=== PATIENT | male | born 1975 | race Caucasian/White ===

== ENCOUNTER 2021-09-25 08:26 | Outpatient (REF) | payer OTHER, SELFPAY ==
[2021-09-25 11:14] LABS: Appearance Urine CLEAR; Color Urine YELLOW; Glucose Urine UA >=1000 MG/DL (NEG); Leukocyte Esterase Urine NEG (NEG); Nitrite Urine NEG (NEG); Specific Gravity - Urine 1.025 (1.005-1.025); Urine Blood NEG (NEG); Urine Ketones NEG (NEG); Urine Protein NEG (NEG-TRACE)
[2021-09-25 11:18] LABS: Hemoglobin 16.7 g/dl (14.0-18.0); Mean Corpuscular HGB Conc 33.4 g/dl (31.0-36.0); Mean Corpuscular Hemoglobin 28.8 pg (27.0-33.0); Mean Corpuscular Volume 86.4 fL (80.0-98.0); Mean Platelet Volume 11.6 fL (9.4-12.4); Platelet Count 304 X10*3/uL (160-400); Red Blood Count 5.79 X10*6/uL (4.60-5.80); Red Cell Distribution Width 11.9 % (11.0-16.0); White Blood Count 10.5 X10*3/uL (4.8-10.8)
[2021-09-25 11:23] LABS: Estimated Average Glucose 278 mg/dL; Hemoglobin A1c % 11.3 %
[2021-09-25 11:34] LABS: RBC Urine 0-2 /HPF (0); Squamous Epithelial Cell Urine TRACE /LPF; WBC Urine 0 /HPF (0-4)
[2021-09-25 11:39] LABS: Alanine Aminotransferase 42 U/L (0-40); Albumin Level 4.4 g/dL (3.5-5.0); Alkaline Phosphatase 65 U/L (39-117); Anion Gap 13 (12-20); Aspartate Amino Transferase 21 U/L (5-37); Bilirubin Total 0.4 mg/dL (0.0-1.0); Blood Urea Nitrogen 19 mg/dL (9-16); Calcium 9.3 mg/dL (8.4-10.2); Carbon Dioxide 26 mmol/L (22-29); Chloride 101 mmol/L (96-108); Cholesterol 229 mg/dL; Estimated Glomerular Filt Rate > 60; Glucose Fasting 273 mg/dL (60-99); HDL Cholesterol 37 mg/dL; LDL Cholesterol Calculated 132 mg/dl; Potassium 4.2 mmol/L (3.3-5.1); Sodium 136 mmol/L (135-145); Total Protein 7.6 g/dL (6.5-8.0); Triglycerides 301 mg/dL
[2021-09-25 11:44] LABS: Creatinine Urine 113.89 mg/dL; Microalbum/Creatinine Ratio Ur 45.6 ug/mg cr
== END 2021-09-25 08:27 | disposition home or self-care (01) ==
LOC: HO.HMGCLDS 08:26
PROVIDERS: PCP Internal Medicine; Visit Provider Internal Medicine
DX: E11.9 Type 2 diabetes mellitus without complications (principal); I10 Essential (primary) hypertension
CPT/HCPCS: 36415; 80053; 80061; 81001; 82043; 83036; 85027

== ENCOUNTER → 2022-01-04 14:52 | Outpatient (BNVA) | payer OTHER, SELFPAY | PROVIDERS: PCP Internal Medicine; Referring Provider Internal Medicine; Visit Provider Internal Medicine | DX: I48.0 Paroxysmal atrial fibrillation (principal); R93.1 Abnormal findings on diagnostic imaging of heart and coronary circulation; E11.9 Type 2 diabetes mellitus without complications; I10 Essential (primary) hypertension; Z79.01 Long term (current) use of anticoagulants; Z79.899 Other long term (current) drug therapy | CPT/HCPCS: 93005 ==

== ENCOUNTER → 2022-02-16 14:38 | Outpatient (REF) | payer OTHER, SELFPAY ==
--- NOTE | 2022-02-16 14:43 | CA_ITS ---
Transthoracic Echocardiogram Patient (Last, First, Middle): Jerod Jain, Gender: Male Date of : 1975 Age: 46 Procedure Date: 02/16/2022 Procedure Type: Transthoracic Echocardiogram Location: OP Height: 182.88 cm Weight: 104.33 kg BSA: 2.26 m2 Heart Rate: bpm BP: 140 / 100 mmHg Asset Protection Detective: ELSA Referring MD: Amanda Kline MD Yard Supervisor Cotton Gin: Matt Barraza MD Symptoms: I48.91 - Unspecified atrial fibrillation Study Quality: Good ECG Rhythm: Sinus Conclusions: - 1. Low normal LV systolic function with grade 1 diastolic dysfunction 2. Mildly dilated ascending aorta with possible bicuspid aortic valve 3. Normal cardiac valvular Doppler 4. Normal RV systolic pressure 5. No pericardial effusion Findings Left Ventricle Normal left ventricular cavity size. There is mildly increased left ventricular wall thickness. The left ventricular systolic function is low normal. The visually estimated ejection fraction is between 50-55%. Spectral Doppler is indicative of an impaired relaxation filling pattern. E/E prime ratio is <8, consistent with normal filling pressures. Evidence suggests grade I (mild) diastolic dysfunction. Measured peak global longitudinal endocardial strain is -15.6% which is reduced Right Ventricle Normal right ventricular cavity size and systolic function. Atria The left atrium is likely dilated. There is lipomatous hypertrophy of the interatrial septum. There is no evidence of interatrial shunt. The right atrium is normal in size. Aortic Valve There is no aortic valve stenosis. There is no aortic valve regurgitation. The valve leaflets are not very well visualized but appear to be bicuspid with fused right and left leaflets. Mitral Valve Normal mitral valve structure and function. There is trace mitral valve regurgitation. There is no mitral valve stenosis. Pulmonic Valve The pulmonic valve is likely normal. There is trace pulmonic valve regurgitation. Tricuspid Valve Normal tricuspid valve structure. There is trace tricuspid valve regurgitation. The right ventricular systolic pressure is normal. The right ventricular systolic pressure is 21 mmHg. Normal right atrial pressure. There is no evidence of pulmonary hypertension. Great Vessels The pulmonary artery was not well visualized. There is mild dilatation of the ascending aorta measuring 4.00 cm. Venous The inferior vena cava is normal in size and collapses greater than 50% with inspiration. Pericardium/Pleural There is no evidence of pericardial effusion. Prior Study Comparison No prior study available for comparison. Measurements 2D Linear Measurements IVSd: 1.18 0.6-0.9/0.6-1.0 cm LVIDd: 4.42 3.9-5.3/4.2-5.9 cm LVIDd Index: 1.96 2.4-3.2/2.2-3.1 cm/m2 LVIDs: 2.51 2.0-3.6 cm LVPWd: 1.19 0.7-1.1 cm LA Diam: 4.20 2.7-3.8/3.0-4.0 cm LAIDs Index: 1.86 1.5-2.3 cm/m2 LV Mass: 235.76 67-162/88-224 g LV Mass Index: 104.32 43-95/49-115 g/m2 LVOT Diam: 2.50 3.0+(-)1.3 cm 2D Systolic Function EF 4C: 55.50 >55% EF 2C: 55.00 >55% EF BiP: 54.30 >55% Mitral Valve MV Pk E: 0.61 MV PK A: 0.66 MV Decel Time: 158.00 E/A: 0.90 E'Lateral: 5.98 E'Medial: 5.98 E/E' Med: 10.20 E/E' Lat: 10.20 PHT: 46.00 MVA PHT: 4.78 Decel Roosevelt: 3.86 Aortic Valve AoV Pk David: 1.28 AoV Mn David: 1.09 AoV VTI: 0.28 AoV Pk Grad: 7.00 Aov Mn Grad: 5.00 JENNIFER Cont.VTI: 3.33 LVOT LVOT Pk David: 0.98 LVOT Mn David: 0.67 LVOT VTI: 0.19 LVOT Pk Grad: 4.00 LVOT Mn Grad: 2.00 LVOT Diam: 2.50 LVOT Area: 4.91 Diastolic Function MV Pk E: 0.61 MV Pk A: 0.66 E/A: 0.90 E'Medial: 5.98 E/E' Med: 10.20 E' Laterial: 5.98 E/E' Lat: 10.20 Right Ventricle TAPSE (mm): 25.30 TVS' David: 15.00 Tricuspid Valve TR Pk David: 1.83 TR Pk Grad: 13.00 RA Press: 8.00 RVSP: 21.00 Great Vessels Aorta Sinus of Valsalva: 3.60 2.0-3.[address] [place]: 3.22 1.7-3.4 cm Ao Asc: 4.00 2.1-3.4 cm Ao Arch: 3.40 Updated in Other Vendor System with Status of Final aMtt Barraza MD electronically signed on 02/17/2022 12:21:22 PM with status of Final
== END ==
LOC: HO.CARD 14:38
PROVIDERS: PCP Internal Medicine; Visit Provider Internal Medicine
DX: I48.91 Unspecified atrial fibrillation (principal)
CPT/HCPCS: 93306; Q9957

== ENCOUNTER 2023-07-05 11:06 | Outpatient (AMB) | payer OTHER, SELFPAY ==
--- NOTE | 2023-07-05 11:30 | MHC.PC.OV ---
Vital Signs 07/05/23 11:31 Height 6 ft Weight 258 lb BMI 35.0 BP 142/94 H Blood Pressure Location Lt brachial Position Sitting Pulse 81 Pulse Source Pulse Oximeter Pulse Oximetry (%) 97 Oxygen Delivery Method Room Air Intake Visit Reasons: PE - due for colonoscopy Intake Note: Pt is here today for PE. Allergies No Known Allergies Allergy (Verified 07/05/23 11:37) Medication List - Last Reconciled 07/05/23 by Amanda Kline MD atorvastatin 10 mg PO BEDTIME cyanocobalamin (vitamin B-12) 1,000 mcg IM QWEEK diltiazem HCl 240 mg PO DAILY empagliflozin (Jardiance) 10 mg PO DAILY glipizide 10 mg PO BID insulin glargine (Lantus Solostar U-100 Insulin) 60 units (0.6 mL) subcut DAILY insulin lispro (Humalog KwikPen (U-100) Insulin) 10 units (0.1 mL) subcut BID metformin 1,000 mg PO BID metoprolol succinate ER 50 mg PO DAILY olmesartan 20 mg PO DAILY pantoprazole 40 mg PO DAILY pen needle, diabetic (BD Ultra-Fine Mini Pen Needle) As directed vardenafil 20 mg PO DAILY Tobacco use date assessed: 07/05/23 Dental Screening Dental Screen Date: 07/05/23 Did you have a dental visit in the last 12 months?: Yes Did you have a dental problem in the last 6 months where you did not have access to dental care?: No Was dental information given to patient?: Patient has dentist HPI PE - due for colonoscopy HPI Details Pt presents for PE. Pt started Jardiance 2 months ago and reports improved fasting blood glucose down to 140. Patient does not use Adalgisa sensor because of increased sweating during the summertime. He has not been taking atorvastatin because ran out of the prescription. Patient has not seen a student life advisor for at least 6 months because they moved to different location. [facility] Medical History COVID-19 DM type 2 (diabetes mellitus, type 2) HTN (hypertension) Hyperlipidemia Kidney lump Family History Father No problems noted. Mother Hypertension Social History Household Members Other:: , 3 sons, came from [place] 6 yrs ago Housing: House Patient Tobacco Use Status: Former Tobacco user Quit Date: 3 years ago e-Cigarette/Vaping Use: Never Used Current occupational status: employed Cognitive needs: No Hearing needs: No Vision needs: Yes Questionnaire PHQ-9 Over the last 2 weeks, how often have you been bothered by any of the following problems? 1. Little interest or pleasure in doing things: not at all 2. Feeling down, depressed, or hopeless: not at all 3. Trouble falling or staying asleep, or sleeping too much: not at all 4. Feeling tired or having little energy: not at all 5. Poor appetite or overeating: not at all 6. Feeling bad about yourself - or that you are a failure or have let yourself or your family down: not at all 7. Trouble concentrating on things, such as reading the newspaper or watching television: not at all 8. Moving or speaking so slowly that other people could have noticed. Or the opposite - being so fidgety or restless that you have been moving around a lot more than usual: not at all 9. Thoughts that you would be better off or of hurting yourself in some way: not at all Total score: 0 Depression Screening Interpretation: Negative Source: Developed by Drs. Yuriy Ayala, Juanita Gutierrez, Rayray Barnett and colleagues, with an educational zora from [employer]. Thrive Questionnaire Date Thrive assessed: 07/05/23 I am a: Patient What is your living situation today?: I have a steady place to live Within the past 12 months, did the food you bought not last and you didn't have the money to get more?: Never true Within the past 12 months, did you worry whether your food would run out before you got money to buy more?: Never true Do you have trouble paying for medicines?: No Do you have trouble getting transportation to medical appointments?: No Do you have trouble paying your heating and electricity bill?: No Do you have trouble taking care of your child, family member or friend?: No Do you have trouble with day-to-day activities such as bathing, preparing meals, shopping, managing finances, etc.?: No Are you currently unemployed and looking for a job?: No Are you interested in more education?: No Please select the resources that you would like help with: None Currently or been in a relationship where the following occur: no concerns reported AUDIT C Alcohol Use Questionnaire (AUDIT-C) 1. How often do you have a drink containing alcohol?: Monthly or less 2. How many drinks containing alcohol do you have on a typical day when you are drinking?: 1 or 2 3. How often do you have six or more drinks on one occasion?: Never Total Score: 1 LAINE-7 AMB Questionnaire LAINE-7 Date LAINE - 7 assessed: 07/05/23 Feeling nervous, anxious, or on edge: 0 = Not at all Not being able to stop or control worryin = Not at all Worrying too much about different things: 0 = Not at all Trouble relaxin = Not at all Being so restless that it is hard to sit still: 0 = Not at all Becoming easily annoyed or irritable: 0 = Not at all Feeling afraid as if something awful might happen: 0 = Not at all Total LAINE-7 score (0-4 normal; 5-9 mild; 10-14 moderate; 15-21 severe): 0 Source: Developed by Drs. Yuriy Ayala, Juanita Gutierrez, Rayray Barnett and colleagues, with an educational zora from [employer]. Review of Systems Const All systems reviewed & are unremarkable except as noted in HPI and below Reports no additional complaints Eyes Reports no additional complaints ENT Reports no additional complaints Card Reports no additional complaints Resp Reports no additional complaints GI Reports no additional complaints Reports no additional complaints Physical exam (Primary Care) Vital Signs: Last Vital Signs Pulse 81 07/05/23 11:31 BP 142/94 H 07/05/23 11:31 Pulse Ox 97 07/05/23 11:31 Oxygen Delivery Method Room Air 07/05/23 11:31 BMI result Body Mass Index 35.0 Tobacco/Smoking Status: Tobacco use Status Tobacco use date assessed 07/05/23 07/05/23 11:43 Patient Tobacco Use Status Former Tobacco user 07/05/23 11:30 e-Cigarette/Vaping Use Never Used 07/05/23 11:30 PHQ-9: PHQ-9 Score PHQ-9: Total score 0 07/05/23 12:28 Depression Screening Interpretation: Negative Thrive Assessment: Date of Thrive Assessment Date Thrive assessed 07/05/23 07/05/23 11:44 Currently or been in a relationship where the following occur: no concerns reported Const General: no acute distress HENMT Head: Yes normal to inspection Face and sinus: Yes normal facial exam Throat: Yes posterior oropharynx normal Neck Neck: Yes no lymphadenopathy and Yes supple Resp Effort & Inspection: normal respiratory effort Auscultation: clear to auscultation bilaterally Cardio Rhythm: regular rhythm Heart sounds: S1 normal heart sound present and S2 normal heart sound present GI Inspection: Yes normal to inspection Palpation (GI): Soft to palpation Percussion: Yes normal to percussion Auscultation: normal bowel sounds Extrem Other: Diabetic foot exam skin is intact , absent sensation to monofilament in both feet General: Yes no clubbing, cyanosis or edema Results AMB Hemoglobin A1c AMB Hemoglobin A1c 7.9 % Last Edit by HANNAH Aquino on 07/05/23 12:29 Results Reviewed Results Reviewed: Laboratory Last Values Hgb A1c (Clinic) 7.9 % (4.0-6.0) H 07/05/23 12:22 Assessment and Plan Assessment & Plan (1) Colon cancer screening: Code(s): Z12.11 - Encounter for screening for malignant neoplasm of colon Plan: Referred to GI for colonoscopy (2) HTN (hypertension): Comment: x 20 years Code(s): I10 - Essential (primary) hypertension Plan: Increase olmesartan to 40 mg a day and continue Cardizem. Patient will return in 1 week for basic metabolic panel (3) Type 2 diabetes mellitus with unspecified complications: Comment: Diabetic neuropathy and retinopathy Code(s): E11.8 - Type 2 diabetes mellitus with unspecified complications Plan: A1c is 7.1 today. Patient was advised to increase Jardiance to 25 mg continue metformin and insulin. He was advised to decrease glipizide to half a tablet twice a day if fasting glucose is persistently less than 100. Patient will follow-up in 6 weeks for blood pressure check and fasting blood work before next visit (4) Annual physical exam: Code(s): Z00.00 - Encounter for general adult medical examination without abnormal findings Plan: Well-balanced diet regular exercise discussed with the patient (5) Hyperlipidemia: Code(s): E78.5 - Hyperlipidemia, unspecified Plan: Restart atorvastatin and check lipid profile before next visit (6) Pernicious anemia: Code(s): D51.0 - Vitamin B12 deficiency anemia due to intrinsic factor deficiency Orders: Orders Basic Metabolic Panel 1 Week E11.9 - Type 2 diabetes mellitus without complications, E78.5 - Hyperlipidemia, unspecified, I10 - Essential (primary) hypertension Comprehensive [place]. Panel Fast 6 Weeks E11.9 - Type 2 diabetes mellitus without complications, E78.5 - Hyperlipidemia, unspecified, I10 - Essential (primary) hypertension Lipid Panel 6 Weeks E11.9 - Type 2 diabetes mellitus without complications, E78.5 - Hyperlipidemia, unspecified, I10 - Essential (primary) hypertension Microalbumin, Random (w Creat) 6 Weeks E11.9 - Type 2 diabetes mellitus without complications, E78.5 - Hyperlipidemia, unspecified, I10 - Essential (primary) hypertension Complete Blood Count Auto Diff 6 Weeks E11.9 - Type 2 diabetes mellitus without complications, E78.5 - Hyperlipidemia, unspecified, I10 - Essential (primary) hypertension AMB Hemoglobin A1c Today Z13.9 - Encounter for screening, unspecified Vitamin B12 and Folate 6 Weeks D51.0 - Vitamin B12 deficiency anemia due to intrinsic factor deficiency Referrals Gastroenterology Referral Z12.11 - Encounter for screening for malignant neoplasm of colon Medications: New olmesartan 40 mg PO DAILY 90 tabs 0RF atorvastatin 10 mg PO BEDTIME 90 tabs 3RF empagliflozin (Jardiance) 25 mg PO DAILY 90 tabs 3RF Changed From insulin glargine (Lantus Solostar U-100 Insulin) 100 units subcut DAILY 30 mL 0RF To insulin glargine (Lantus Solostar U-100 Insulin) 60 units (0.6 mL) subcut DAILY 30 mL 0RF From insulin lispro (Humalog KwikPen (U-100) Insulin) 10 units (0.1 mL) subcut BID 15 mL 4RF To insulin lispro (Humalog KwikPen (U-100) Insulin) 20 units (0.2 mL) subcut BID 30 mL 4RF Refilled insulin glargine (Lantus Solostar U-100 Insulin) 60 units (0.6 mL) subcut DAILY 45 mL 3RF Discontinued olmesartan Discontinued Reason: Doctor's Order 20 mg PO DAILY 90 tabs 3RF Coding Level of Care Code Est Pt Prev Care 40-64y(14325) Diagnoses Colon cancer screening Z12.11 HTN (hypertension) I10 Type 2 diabetes mellitus with unspecified complications E11.8 Annual physical exam Z00.00 Hyperlipidemia E78.5 Pernicious anemia D51.0
[2023-07-05 11:31] VITALS: BP 142/94; PULSE 81; O2SAT 97; BMI 35.0
== END 2023-07-05 12:49 | disposition home or self-care (01) ==
PROVIDERS: PCP Internal Medicine; Visit Provider Internal Medicine
DX: Z00.00 Encounter for general adult medical examination without abnormal findings (principal); I10 Essential (primary) hypertension; E11.8 Type 2 diabetes mellitus with unspecified complications; Z12.11 Encounter for screening for malignant neoplasm of colon; E78.5 Hyperlipidemia, unspecified; D51.0 Vitamin B12 deficiency anemia due to intrinsic factor deficiency
CPT/HCPCS: 83036; 99396

== ENCOUNTER 2023-12-11 07:54 | Outpatient (REF) | payer OTHER, SELFPAY | END 2023-12-11 07:55 | disposition home or self-care (01) | LOC: HO.LNP 07:54 | PROVIDERS: PCP Internal Medicine; Visit Provider Physician Assistant | DX: A04.8 Other specified bacterial intestinal infections (principal) | CPT/HCPCS: 87338 ==

== ENCOUNTER 2023-12-11 07:54 | Outpatient (AMB) | payer OTHER, SELFPAY ==
--- NOTE | 2023-12-11 08:00 | MHC.OFFVIS ---
Intake Vital Signs 12/11/23 08:01 Height 6 ft Weight 262 lb 5.601 oz BMI 35.6 BP 161/104 H Blood Pressure Location Lt brachial Position Sitting Pulse 91 Intake Visit Reasons: Colonoscopy Screening Intake Note: Jerod presents in the office as a colonoscopy screening. CC: He is not having any concerns -- he has never had a colonoscopy and no colon cancer in the family. His son is interpreting for him today. Inbound Sales Consultant Required: Yes Inbound Sales Consultant Name: Son Allergies No Known Allergies Allergy (Verified 12/11/23 08:06) Medication List - Last Reconciled 12/11/23 by Martita Waterman PA-C albuterol sulfate 90 mcg/actuation 1 puff inhalation Q4-6H PRN atorvastatin 10 mg PO BEDTIME cyanocobalamin (vitamin B-12) 1,000 mcg IM QWEEK diltiazem HCl 240 mg PO DAILY empagliflozin (Jardiance) 25 mg PO DAILY glipizide 10 mg PO BID hydrochlorothiazide 25 mg PO QDAY insulin glargine (Lantus Solostar U-100 Insulin) 60 units (0.6 mL) subcut DAILY insulin lispro (Humalog KwikPen (U-100) Insulin) 20 units (0.2 mL) subcut BID lidocaine 5% patches topical lisinopril 10 mg PO DAILY metformin 1,000 mg PO BID metoprolol succinate ER 50 mg PO DAILY olmesartan 40 mg PO DAILY pen needle, diabetic (BD Ultra-Fine Mini Pen Needle) As directed vardenafil 20 mg PO DAILY HPI HPI Comments History of Present Illness Details A 48 y/o diabetic male referred for index screening colonoscopy presents with heartburn- for a few years- happens with clear water- a few times a week-has become annoying he has not taking any medication Bowels are fine-he has never had a colonoscopy Appetite good-unable to identify any culprits to cause heartburn since Recent DVT left leg-currently taking Eliquis No N/V/D/ abdominal pain- fever or chills His adult son is present and interprets for him [facility] Medical History Hyperlipidemia COVID-19 DM type 2 (diabetes mellitus, type 2) HTN (hypertension) Kidney lump Surgical History History of gastric surgery Family History Father No problems noted. Mother Hypertension Social History Household Members Other:: , 3 sons, came from [place] 6 yrs ago Housing: House Patient Tobacco Use Status: Former Tobacco user Quit Date: 3 years ago e-Cigarette/Vaping Use: Never Used Current occupational status: employed Cognitive needs: No Hearing needs: No Vision needs: Yes Review of Systems Const All systems reviewed & are unremarkable except as noted in HPI and below Card Denies chest pain and Denies dyspnea Resp Denies dyspnea GI Denies abdominal pain, Reports heartburn, Denies nausea and Denies vomiting Physical Exam Vital Signs: Last Vital Signs Pulse 91 12/11/23 08:01 BP 161/104 H 12/11/23 08:01 BMI result Body Mass Index 35.6 HTN- has not taken meds today- no sx Const General: cooperative, healthy appearing and comfortable Orientation/consciousness: patient oriented x3 Limitations: language barrier Eyes Sclerae: sclerae normal Resp Effort & Inspection: normal respiratory effort and able to speak in complete sentences Auscultation: clear to auscultation bilaterally, no rales and no rhonchi Cardio Rate: regular rate Rhythm: regular rhythm Heart sounds: S1 normal heart sound present and S2 normal heart sound present GI Palpation (GI): Soft to palpation and nontender Auscultation: normal bowel sounds Skin General skin exam: no rashes or lesions noted Neuro General: patient oriented x3 Psych Appearance: grossly normal and well kempt Mental Status: mental status grossly normal Speech and movement: Clear speech present Affect: normal affect Attitude: cooperative Thought process: Normal thought process present Thought content: Normal thought content present Assessment & Plan Assessment & Plan (1) Colon cancer screening: Comment: Normal bowel, no issues has f/u - eliquis Code(s): Z12.11 - Encounter for screening for malignant neoplasm of colon Plan: hold off - see back (2) Anticoagulant long-term use: Comment: eliquis for the past 3 months- DVT left leg- Code(s): Z79.01 - 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 Panel Today R12 - Heartburn, Z12.11 - Encounter for screening for malignant neoplasm of colon, Z79.01 - tank terminal gauger (current) use of anticoagulants H pylori Ag Stool Today A04.8 - Other specified bacterial intestinal infections Medications: New pantoprazole 20 mg PO QAM 30 tabs 6RF Patient Instructions: Await input -anticoagulation HP- if will pos tx He will begin pantoprazole 20 mg after submitting stool sample Labs- update- baseline RTC- 8 weeks Discuss EGD/ colon-plan of care dependent on above Coding Level of Care Code New Pt Level 4 (94182) Diagnoses Colon cancer screening Z12.11 Anticoagulant long-term use Z79.01 Heartburn R12 Time Spent (min) 35 Comment Inbound Sales Consultant
[2023-12-11 08:01] VITALS: BP 161/104; PULSE 91; BMI 35.6
== END 2023-12-11 08:51 | disposition home or self-care (01) ==
PROVIDERS: PCP Internal Medicine; Visit Provider Physician Assistant
DX: Z12.11 Encounter for screening for malignant neoplasm of colon (principal); Z79.01 Long term (current) use of anticoagulants; R12 Heartburn; Z01.818 Encounter for other preprocedural examination
CPT/HCPCS: 99204

== ENCOUNTER 2024-02-03 10:23 | Outpatient (REF) | payer OTHER, SELFPAY ==
[2024-02-03 10:36] LABS: MANUAL DIFF FLAG NO
[2024-02-03 10:46] LABS: Basophils Percent Auto 0.4 % (0-2); Eosinophils Absolute Auto 0.4 X10*3/uL (0.0-0.4); Eosinophils Percent Auto 3.7 % (0-4); Hematocrit 51.9 % (42.0-52.0); Hemoglobin 16.9 g/dl (14.0-18.0); Imm Gran Abs Auto 0.03 X10*3/uL (0.00-0.03); Imm Gran Pct Auto 0.3 % (0.0-0.4); Lymphocytes Absolute Auto 3.9 X10*3/uL (1.2-4.9); Mean Corpuscular HGB Conc 32.6 g/dl (31.0-36.0); Mean Corpuscular Hemoglobin 28.6 pg (27.0-33.0); Mean Corpuscular Volume 87.8 fL (80.0-98.0); Mean Platelet Volume 10.7 fL (9.4-12.4); Monocytes Absolute Auto 0.7 X10*3/uL (0.1-1.2); Monocytes Percent Auto 6.6 % (2-11); Neutrophils Absolute Auto 5.5 x10*3/uL (2.0-8.3); Platelet Count 283 X10*3/uL (160-400); Red Blood Count 5.91 X10*6/uL (4.60-5.80); Red Cell Distribution Width 12.3 % (11.0-16.0); White Blood Count 10.5 X10*3/uL (4.8-10.8)
[2024-02-03 11:25] LABS: Alanine Aminotransferase 78 U/L (0-40); Albumin Level 4.5 g/dL (3.5-5.0); Alkaline Phosphatase 53 U/L (39-117); Anion Gap 14 (12-20); Aspartate Amino Transferase 34 U/L (5-37); Bilirubin Total 0.5 mg/dL (0.0-1.0); Blood Urea Nitrogen 14 mg/dL (9-16); Calcium 9.7 mg/dL (8.4-10.2); Carbon Dioxide 29 mmol/L (22-29); Chloride 104 mmol/L (96-108); Cholesterol 210 mg/dL (<200); Estimated Glomerular Filt Rate > 60; Glucose Fasting 106 mg/dL (60-99); Glucose Random 106 mg/dL (60-115); HDL Cholesterol 33 mg/dL (>40); LDL Cholesterol Calculated 133 mg/dL (<100); Potassium 4.2 mmol/L (3.3-5.1); Sodium 143 mmol/L (135-145); Total Protein 7.6 g/dL (6.5-8.0); Triglycerides 222 mg/dL (<150)
[2024-02-03 11:55] LABS: Folate 11.7 ng/mL (> or = 4.0); Vitamin B12 1115 pg/mL (200-900)
[2024-02-03 12:19] LABS: Creatinine Urine 89.47 mg/dL; Microalbum/Creatinine Ratio Ur 59.2 ug/mg cr (<30)
== END 2024-02-03 10:24 | disposition home or self-care (01) ==
LOC: HO.LAB 10:23
PROVIDERS: PCP Internal Medicine; Visit Provider Physician Assistant
DX: E78.5 Hyperlipidemia, unspecified (principal); E11.9 Type 2 diabetes mellitus without complications; I10 Essential (primary) hypertension; D51.0 Vitamin B12 deficiency anemia due to intrinsic factor deficiency; R12 Heartburn; Z79.01 Long term (current) use of anticoagulants
CPT/HCPCS: 36415; 80053; 80061; 82043; 82570; 82607; 82746; 85025

== ENCOUNTER 2024-02-05 08:29 | Outpatient (AMB) | payer OTHER, SELFPAY ==
--- NOTE | 2024-02-05 08:39 | MHC.OFFVIS ---
Intake Vital Signs 02/05/24 08:40 Height 6 ft Weight 260 lb BMI 35.3 BP 171/91 H Blood Pressure Location Lt brachial Position Sitting Pulse 85 Intake Visit Reasons: 8 weeks follow up Intake Note: Patient follow up for stool results Patient denies any GI issues. Reading Aide Required: Yes Reading Aide Name: son Accompanied by: Son Allergies No Known Allergies Allergy (Verified 02/05/24 08:38) HPI HPI Comments History of Present Illness Details A 48 y/o DM male hx DVT- eliquis- follows up after seeing pcp Patient is accompanied by his adult son who interprets for-he tells me that he has seen his PCP they discussed colonoscopy with him and he agreed that it would be okay for him to stop Eliquis up to 1 week for procedures His bowels are normal- no loose stool Appetite good-pantoprazole daily for heartburn-occasional breakthrough symptoms No cardiac or respiratory c/o No N/V/D, abdominal pain, fever or chills He has no hematemesis, or hematochezia PCP- [facility] [address] [facility]. [phone] [facility] Medical History (Updated 02/05/24 @ 10:22 by Martita Waterman PA-C) Hyperlipidemia COVID-19 DM type 2 (diabetes mellitus, type 2) HTN (hypertension) Kidney lump Surgical History History of gastric surgery Family History Father No problems noted. Mother Hypertension Social History Household Members Other:: , 3 sons, came from [place] 6 yrs ago Housing: House Patient Tobacco Use Status: Former Tobacco user Quit Date: 3 years ago e-Cigarette/Vaping Use: Never Used Current occupational status: employed Cognitive needs: No Hearing needs: No Vision needs: Yes Review of Systems Const All systems reviewed & are unremarkable except as noted in HPI and below Card Denies chest pain and Denies dyspnea Resp Denies dyspnea GI Denies abdominal pain, Denies hematochezia, Reports heartburn, Denies nausea and Denies vomiting Physical Exam Vital Signs: Last Vital Signs Pulse 85 02/05/24 08:40 BP 171/91 H 02/05/24 08:40 BMI result Body Mass Index 35.3 Const General: cooperative, healthy appearing and comfortable Nutritional Appearance: overweight Orientation/consciousness: patient oriented x3 Limitations: language barrier Eyes Sclerae: sclerae normal Resp Effort & Inspection: normal respiratory effort and able to speak in complete sentences Auscultation: no rhonchi, no wheezes and diminished lung sounds Cardio Rate: regular rate Rhythm: regular rhythm Heart sounds: S1 normal heart sound present and S2 normal heart sound present GI Inspection: Yes obesity Palpation (GI): not soft and nontender Auscultation: normal bowel sounds Skin General skin exam: no rashes or lesions noted Neuro General: patient oriented x3 Extrem General: Yes full ROM Psych Appearance: grossly normal Mental Status: mental status grossly normal Speech and movement: Normal speech and movement present Affect: normal affect Attitude: cooperative Thought process: Normal thought process present Thought content: Normal thought content present Assessment & Plan Assessment & Plan (1) Colon cancer screening: Comment: Normal bowel, no issues has f/u with PCP discuss- eliquis-okay to stop for procedure Discuss diabetes medication Scheduled for EGD and colonoscopy, discussed procedures as well as rare risks need for escorted and prep Code(s): Z12.11 - Encounter for screening for malignant neoplasm of colon Plan: Discontinue Eliquis 2 days Jardiance 3 days Half dose insulin evening before, omit Met Hoffman in glipizide No diabetes medications morning of procedure (2) Heartburn: Comment: Continue PPI Code(s): R12 - Heartburn Plan: EGD Plan EGD/ colon Eliquis- d/c 2 days if appropriate Jardiance - 3 days-d/c 1/2 /dose insulin ayden before- omit metformin and glip NO DM meds morning of procedures [facility] [address] [facility]. 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
[2024-02-05 08:40] VITALS: BP 171/91; PULSE 85; BMI 35.3
== END 2024-02-05 09:10 | disposition home or self-care (01) ==
PROVIDERS: PCP Internal Medicine; Visit Provider Physician Assistant
DX: Z12.11 Encounter for screening for malignant neoplasm of colon (principal); R12 Heartburn; Z01.818 Encounter for other preprocedural examination
CPT/HCPCS: 99213

== ENCOUNTER → 2024-02-05 08:29 | Outpatient (BNVA) | payer OTHER, SELFPAY | PROVIDERS: PCP Internal Medicine; Visit Provider Physician Assistant ==

== ENCOUNTER 2024-09-27 13:20 | Outpatient (AMB) | payer OTHER, SELFPAY ==
[2024-09-27 13:39] VITALS: BP 128/80; PULSE 82; O2SAT 98; BMI 36.1
--- NOTE | 2024-09-27 13:39 | MHC.PC.OV ---
Vital Signs 09/27/24 13:39 Height 6 ft Weight 266 lb BMI 36.1 BP 128/80 Blood Pressure Location Rt brachial Position Sitting Pulse 82 Pulse Source Pulse Oximeter Pulse Oximetry (%) 98 Oxygen Delivery Method Room Air Intake Visit Reasons: PE Intake Note: pt is here for annual exam Stitchdown Toe Former Required: No Accompanied by: Self / Same As Patient Allergies No Known Allergies Allergy (Verified 02/05/24 08:38) Medication List - Last Reconciled 09/27/24 by Amanda Kline MD albuterol sulfate 90 mcg/actuation 1 puff inhalation Q4-6H PRN atorvastatin 10 mg PO BEDTIME cyanocobalamin (vitamin B-12) 1,000 mcg IM QWEEK diltiazem HCl CD 240 mg PO DAILY empagliflozin (Jardiance) 25 mg PO DAILY glipizide 10 mg PO BID insulin glargine (Lantus Solostar U-100 Insulin) 60 units (0.6 mL) subcut DAILY insulin lispro (Humalog KwikPen (U-100) Insulin) 20 units (0.2 mL) subcut BID lidocaine 5% patches topical lisinopril 20 mg PO DAILY metformin 1,000 mg PO BID metoprolol succinate ER 50 mg PO DAILY pantoprazole 20 mg PO QAM pen needle, diabetic (BD Ultra-Fine Mini Pen Needle) As directed vardenafil 20 mg PO DAILY Tobacco use date assessed: 09/27/24 Dental Screening Dental Screen Date: 09/27/24 Did you have a dental visit in the last 12 months?: Yes Did you have a dental problem in the last 6 months where you did not have access to dental care?: No Was dental information given to patient?: Patient has dentist HPI PE HPI Details Pt presents for PE. Pt had L foot surgery for nonhealing diabetic ulcer in June. Patient follows up with pediatric speech language pathologist and has wound care 3 times a week. Patient reported ulcer is healing well. She is established with endocrinology for insulin-dependent diabetes but reports A1c between 7.5 and over 8. According to Dexcom reader the glucose fluctuates between lowest 152/300 on daily basis. Patient will be starting Mounjaro next week. He has a follow-up with endocrinology with the next month [facility] Medical History (Updated 09/27/24 @ 14:37 by Amanda Kline MD) Hyperlipidemia COVID-19 DM type 2 (diabetes mellitus, type 2) HTN (hypertension) Kidney lump Surgical History History of gastric surgery Family History Father No problems noted. Mother Hypertension Social History Household Members Other:: , 3 sons, came from [place] 6 yrs ago Housing: House Patient Tobacco Use Status: Former Tobacco user e-Cigarette/Vaping Use: Never Used Current occupational status: employed Cognitive needs: No Hearing needs: No Vision needs: Yes Questionnaire PHQ-9 Over the last 2 weeks, how often have you been bothered by any of the following problems? 1. Little interest or pleasure in doing things: not at all 2. Feeling down, depressed, or hopeless: not at all 3. Trouble falling or staying asleep, or sleeping too much: not at all 4. Feeling tired or having little energy: not at all 5. Poor appetite or overeating: not at all 6. Feeling bad about yourself - or that you are a failure or have let yourself or your family down: not at all 7. Trouble concentrating on things, such as reading the newspaper or watching television: not at all 8. Moving or speaking so slowly that other people could have noticed. Or the opposite - being so fidgety or restless that you have been moving around a lot more than usual: not at all 9. Thoughts that you would be better off or of hurting yourself in some way: not at all Total score: 0 Depression Screening Interpretation: Negative Depression Screening Done: Yes 90091 - PHQ-9 Billing: Yes Source: Developed by Drs. Yuriy Ayala, Juanita Gutierrez, Rayray Barnett and colleagues, with an educational zora from [employer]. Thrive Questionnaire Date Thrive assessed: 09/27/24 I am a: Patient What is your living situation today?: I choose not to answer this question Within the past 12 months, did the food you bought not last and you didn't have the money to get more?: I choose not to answer this question Within the past 12 months, did you worry whether your food would run out before you got money to buy more?: I choose not to answer this question Do you have trouble paying for medicines?: I choose not to answer this question Do you have trouble getting transportation to medical appointments?: I choose not to answer this question Do you have trouble paying your heating and electricity bill?: I choose not to answer this question Do you have trouble taking care of your child, family member or friend?: I choose not to answer this question Do you have trouble with day-to-day activities such as bathing, preparing meals, shopping, managing finances, etc.?: No Are you currently unemployed and looking for a job?: I choose not to answer this question Are you interested in more education?: I choose not to answer this question Please select the resources that you would like help with: None Currently or been in a relationship where the following occur: I choose not to answer THRIVE Score: 0 AUDIT C Alcohol Use Questionnaire (AUDIT-C) 1. How often do you have a drink containing alcohol?: Never 2. How many drinks containing alcohol do you have on a typical day when you are drinking?: 1 or 2 3. How often do you have six or more drinks on one occasion?: Never Total Score: 0 Score Reviewed/Action Taken: Yes LAINE-7 AMB Questionnaire LAINE-7 Date LAINE - 7 assessed: 09/27/24 Feeling nervous, anxious, or on edge: 0 = Not at all Not being able to stop or control worryin = Not at all Worrying too much about different things: 0 = Not at all Trouble relaxin = Not at all Being so restless that it is hard to sit still: 0 = Not at all Becoming easily annoyed or irritable: 0 = Not at all Feeling afraid as if something awful might happen: 0 = Not at all Total LAINE-7 score (0-4 normal; 5-9 mild; 10-14 moderate; 15-21 severe): 0 Source: Developed by Drs. Yuriy Ayala, Juanita Gutierrez, Rayray Barnett and colleagues, with an educational zora from [employer]. LAINE-7 Assessment Billing LAINE-7 Assessment Tool: LAINE-7 Assessment 17045 Review of Systems Const All systems reviewed & are unremarkable except as noted in HPI and below Eyes Reports no additional complaints ENT Reports no additional complaints Card Reports no additional complaints Resp Reports no additional complaints GI Reports no additional complaints Reports no additional complaints Physical exam (Primary Care) Vital Signs: Last Vital Signs Pulse 82 09/27/24 13:39 BP 128/80 09/27/24 13:39 Pulse Ox 98 09/27/24 13:39 Oxygen Delivery Method Room Air 09/27/24 13:39 BMI result Body Mass Index 36.1 Tobacco/Smoking Status: Tobacco use Status Tobacco use date assessed 09/27/24 09/27/24 13:43 Patient Tobacco Use Status Former Tobacco user 09/27/24 13:40 e-Cigarette/Vaping Use Never Used 09/27/24 13:40 PHQ-9: PHQ-9 Score PHQ-9: Total score 0 09/27/24 13:46 Depression Screening Interpretation: Negative Thrive Assessment: Date of Thrive Assessment Date Thrive assessed 09/27/24 09/27/24 13:46 Currently or been in a relationship where the following occur: I choose not to answer Const General: no acute distress HENMT Head: Yes normal to inspection Ears: hearing grossly normal bilaterally Mouth: Normal oral and palatal mucosa present Throat: Yes posterior oropharynx normal Neck Neck: Yes no lymphadenopathy and Yes supple Resp Effort & Inspection: normal respiratory effort Auscultation: clear to auscultation bilaterally Cardio Rhythm: regular rhythm Heart sounds: S1 normal heart sound present and S2 normal heart sound present GI Inspection: Yes normal to inspection Palpation (GI): Soft to palpation Percussion: Yes normal to percussion Auscultation: normal bowel sounds Coding Level of Care Code Est Pt Prev Care 40-64y(94414) Diagnoses DM type 2 (diabetes mellitus, type 2) E11.9 Hyperlipidemia E78.5 Type 2 diabetes mellitus with unspecified complications E11.8 PAF (paroxysmal atrial fibrillation) I48.0 Essential hypertension I10 Annual physical exam Z00.00 Additional Codes LAINE-7 Assessment Billing - LAINE-7 Assessment Tool: LAINE-7 Assessment 53920 ([id number]) Assessment & Plan Assessment & Plan (1) DM type 2 (diabetes mellitus, type 2): Comment: Poorly controlled x 20 years, f/u Endo at [facility] , A1C 7.2 06/17 Code(s): E11.9 - Type 2 diabetes mellitus without complications Category: Medical Plan: The most recent A1c was over 8. Patient will be starting Mounjaro has a follow-up next month. ADA diet regular exercise weight loss discussed with the patient. He will continue to follow-up with endocrinology (2) Hyperlipidemia: Code(s): E78.5 - Hyperlipidemia, unspecified Category: Medical Plan: Increase atorvastatin to 40 mg a day, check lipid profile in 2 months (3) Type 2 diabetes mellitus with unspecified complications: Comment: Diabetic neuropathy and retinopathy Code(s): E11.8 - Type 2 diabetes mellitus with unspecified complications Category: Medical Plan: as above (4) PAF (paroxysmal atrial fibrillation): Comment: f/u cardiology Code(s): I48.0 - Paroxysmal atrial fibrillation Category: Medical Plan: On diltiazem and metoprolol follow-up with the Cardiology (5) Essential hypertension: Code(s): I10 - Essential (primary) hypertension Category: Medical Plan: Continue lisinopril and metoprolol (6) Annual physical exam: Code(s): Z00.00 - Encounter for general adult medical examination without abnormal findings Category: Medical Plan: Well-balanced diet regular physical activity weight loss discussed with the patient. He is scheduled for colonoscopy next year Orders: Orders Complete Blood Count Auto Diff 2 Months E11.8 - Type 2 diabetes mellitus with unspecified complications, E11.9 - Type 2 diabetes mellitus without complications, E78.5 - Hyperlipidemia, unspecified Microalbumin, Random (w Creat) 2 Months E11.8 - Type 2 diabetes mellitus with unspecified complications, E11.9 - Type 2 diabetes mellitus without complications, E78.5 - Hyperlipidemia, unspecified Lipid Panel 2 Months E11.8 - Type 2 diabetes mellitus with unspecified complications, E11.9 - Type 2 diabetes mellitus without complications, E78.5 - Hyperlipidemia, unspecified Comprehensive Independence. Panel Fast 2 Months E11.8 - Type 2 diabetes mellitus with unspecified complications, E11.9 - Type 2 diabetes mellitus without complications, E78.5 - Hyperlipidemia, unspecified Hemoglobin A1c 2 Months E11.8 - Type 2 diabetes mellitus with unspecified complications, E11.9 - Type 2 diabetes mellitus without complications, E78.5 - Hyperlipidemia, unspecified Medications: New lisinopril 20 mg PO DAILY 90 tabs 0RF atorvastatin 40 mg PO BEDTIME 90 tabs 1RF Discontinued olmesartan Discontinued Reason: Entered in error 40 mg PO DAILY 90 tabs 0RF
== END 2024-09-27 14:40 | disposition home or self-care (01) ==
LOC: HO.HMCC 13:21
PROVIDERS: PCP Internal Medicine; Visit Provider Internal Medicine
DX: Z00.00 Encounter for general adult medical examination without abnormal findings (principal); E11.69 Type 2 diabetes mellitus with other specified complication; E11.8 Type 2 diabetes mellitus with unspecified complications; I48.0 Paroxysmal atrial fibrillation; E78.5 Hyperlipidemia, unspecified; I10 Essential (primary) hypertension

== ENCOUNTER → 2024-09-27 13:20 | Outpatient (BNVA) | payer OTHER, SELFPAY | PROVIDERS: PCP Internal Medicine; Visit Provider Internal Medicine | DX: Z00.00 Encounter for general adult medical examination without abnormal findings (principal); E78.5 Hyperlipidemia, unspecified; E11.8 Type 2 diabetes mellitus with unspecified complications; I48.0 Paroxysmal atrial fibrillation; I10 Essential (primary) hypertension; Z79.899 Other long term (current) drug therapy | CPT/HCPCS: 96127 ==

== ENCOUNTER → 2024-11-29 15:08 | Outpatient (REF) | payer OTHER, SELFPAY ==
--- NOTE | 2024-11-29 15:32 | ECG_ITS ---
Test Reason : preop Blood Pressure : / mmHG Vent. Rate : 080 BPM Atrial Rate : 080 BPM P-R Int : 236 ms QRS Dur : 096 ms QT Int : 364 ms P-R-T Axes : 056 -15 024 degrees QTc Int : 419 ms Sinus rhythm with 1st degree A-V block Inferior infarct , age undetermined Abnormal ECG No previous ECGs available Referred By: Amanda Kline Electronically Signed By:PEDRO CALIX MD
--- OUTSIDE RECORDS SUMMARY | 2024-11-29 16:20 | XMS_ITS ---
Author Name [facility] Organization Unknown History of Medication Use Medication Directions Dispensed Refills Start Date End Date Stat mupirocin (BACTROBAN) 2 % ointment Apply topically daily. 04/09/2024 active amoxicillin-clavulan ate (AUGMENTIN) 875-125 MG per tablet Take 1 tablet by mouth 2 (two) times a day. 04/09/2024 active Problems Problem Status Onset Date Problem Type Date of Resoluti on Source Open wound active EncounterDiagnosisAct [facility]
--- OUTSIDE RECORDS SUMMARY | 2024-11-29 16:21 | XMS_ITS | Continuity of Care Document ---
Author Organization [facility] Address [address] [place] [address] [address] [place] [address] Phone Care Team Providers Care Paper Maker Name Role Phone Eugenio PIERCE FACS RVT [...] Providers Copied on Encounter [facility], [address] [place] [address] [address], [place], [id number], [place] tel:[phone] [facility] No Information Jan- 3 Eugenio PIERCE FACS RVTammy Ott. [address] [facility], [facility] [address], [place], [address], [place]. tel:[phone] Referring Provider: Halley Quiroz DO, Rd, [place], [place], [facility]. tel:[phone] Office/Outpt E&M Established 15 Mins [facility], [address] [place] [address] [address] T[address], [id number], tel:[phone] [facility] - [place] Venous insufficiency (chronic) (peripheral) 3 Eugenio PIERCE FACS Tammy Ott. [address] [place] [address], [place], [address], . tel:[phone] Referring Provider: Halley Quiroz DO, Rd, [place], [place], [facility]. tel:[phone] [place] [facility], [address] [place] [address] Dr Tilley [address], [id number], tel:[phone] [facility] [place] Venous insufficiency (chronic) (peripheral) 3 Eugenio PIERCE FACS Tammy Ott. [address] [place] [address], [place], [address], . tel:[phone] Referring Provider: Halley Quiroz DO, Rd, [place], [place], [facility]. tel:[phone] Offic Cons New/estab Mod-hi 60 [facility], [address] [place] [address] Dr Tilley [address], [id number], tel:[phone] [facility] - [place] Venous insufficiency (chronic) (peripheral)Es sential (primary) hypertension 3 Eugenio PIERCE FACS Tammy Ott. [address] [place] [address], [place] [address], [place], [address], . tel:[phone] Referring Provider: Halley Quiroz DO, Rd, [place], [place], [facility]. tel:[phone] Family History Family Member Type Diagnosis Age At Onset No Information Payers Payer name Insurance type Covered alliance party ID Kevin barragan(s) [facility] [id number] Social History Type Description Quantity Date Captured [...]
== END ==
LOC: HO.CARD 15:08
PROVIDERS: PCP Internal Medicine; Visit Provider Internal Medicine
DX: I10 Essential (primary) hypertension (principal); E11.9 Type 2 diabetes mellitus without complications
CPT/HCPCS: 93005

== ENCOUNTER → 2024-11-29 15:32 | Outpatient (BNV) | payer OTHER, SELFPAY | PROVIDERS: PCP Internal Medicine; Visit Provider Internal Medicine Cardiovascular Disease | DX: R94.31 Abnormal electrocardiogram [ECG] [EKG] (principal) | CPT/HCPCS: 93010 ==

== ENCOUNTER 2024-12-13 08:38 | Day surgery (SDC) | payer OTHER, SELFPAY ==
--- NOTE | 2024-12-12 09:12 | HO.ANESPROP2 ---
HPI - Anesthesia Eval Consult details Narrative: 49yo M for Upper Endoscopy and Colonoscopy Anesthesia Pre-Procedure Meds Is the patient on any of the following meds?: GLP1/DPP4 and SGLT2 Inhib PMFSH Active Problems Active Problems: All Active Problems Heartburn (Acute) Anticoagulant long-term use (Acute) Pernicious anemia (Acute) Colon cancer screening (Acute) Sciatica (Acute) Annual physical exam (Acute) Essential hypertension (Acute) Type 2 diabetes mellitus with unspecified complications (Acute) Regional wall motion abnormality of heart (Acute) Hyperlipidemia (Acute) COVID-19 (Acute) DM type 2 (diabetes mellitus, type 2) (Acute) HTN (hypertension) (Acute) Past Medical History Medical History (Updated 09/27/24 @ 14:37 by Amanda Kline MD) Hyperlipidemia COVID-19 DM type 2 (diabetes mellitus, type 2) HTN (hypertension) Kidney lump Family History Family History Father No problems noted. Mother Hypertension Surgical History Surgical History History of gastric surgery Social History Social History Household Members Other:: , 3 sons, came from [place] 6 yrs ago Housing: House Patient Tobacco Use Status: Former Tobacco user e-Cigarette/Vaping Use: Never Used Current occupational status: employed Cognitive needs: No Hearing needs: No Vision needs: Yes Meds Allergies Allergy/AdvReac Type Severity Reaction Status Date / Time No Known Allergies Allergy Verified 02/05/24 08:38 Home Medications ?Medication ?Instructions ?Recorded ?Confirmed ?Last Taken ?Type metformin 500 mg tablet 1,000 mg PO BID 09/15/21 09/27/24 Unknown History pen needle, diabetic 31 gauge x #50 ea 09/15/21 09/27/24 Unknown History 02/09 (BD Ultra-Fine Mini Pen Needle) cyanocobalamin (vitamin B-12) 1,000 mcg IM QWEEK 07/04/22 09/27/24 Unknown History 1,000 mcg/mL injection solution glipizide 10 mg tablet 10 mg PO BID 07/04/22 09/27/24 Unknown History diltiazem HCl 240 mg 240 mg PO DAILY 07/05/23 09/27/24 Unknown History capsule,extended release 24 hr albuterol sulfate 90 mcg/actuation 1 puff inhalation Q4-6H PRN 12/11/23 09/27/24 Unknown History aerosol inhaler lidocaine 5 % topical patch patch topical 12/11/23 09/27/24 Unknown History tirzepatide 2.5 mg/0.5 mL 2.5 mg subcut QWEEK 12/12/24 12/12/24 Unknown History subcutaneous pen injector (Zaire) Assessment and Plan Assessment Anesthesia Assessment: Chart Reviewed
--- OUTSIDE RECORDS SUMMARY | 2024-12-13 09:06 | XMS_ITS | Continuity of Care Document ---
Author Organization [facility] Address [address] [place] [address] [address] [place] [address] Phone Care Team Providers Care Molded Goods Operator Name Role Phone Eugenio PIERCE FACS RVT [...] Providers Copied on Encounter [facility], [address] [place] [address] [address], [place], [id number], [place] tel:[phone] [facility] No Information Jan- 3 Eugenio PIERCE FACS RVTammy Ott. [address] [facility], [facility] [address], [place], [address], [place]. tel:[phone] Referring Provider: Halley Quiroz DO, Rd, [place], [place], [facility]. tel:[phone] Office/Outpt E&M Established 15 Mins [facility], [address] [place] [address] [address] T[address]ley [address], [id number], tel:[phone] [facility] [place] Venous insufficiency (chronic) (peripheral) 3 Eugenio PIERCE FACS Tammy Ott. [address] [place] [address], [place], [address], . tel:[phone] Referring Provider: Halley Quiroz DO, Rd, [place], [place], [facility]. tel:[phone] [facility], [address] [place] [address] Dr Tilley [address]Ana [place], [id number], tel:[phone] [facility] [place] Venous insufficiency (chronic) (peripheral) 3 Eugenio PIERCE FACS Tammy Ott. [address] [place] [address], [place], [address], . tel:[phone] Referring Provider: Halley Quiroz DO, Rd, [place], [place], [facility]. tel:[phone] Offic Cons New/estab Mod-hi 60 [facility], [address] [place] [address] Dr Tilley [address]a [place], [id number], tel:[phone] [facility] - [place] Venous insufficiency (chronic) (peripheral)Es sential (primary) hypertension 3 Eugenio PIERCE FACS Tammy Ott. [address] [place] [address], [place] [address], [place], [address], . tel:[phone] Referring Provider: Halley Quiroz DO, Rd, [place], [place], [facility]. tel:[phone] Family History Family Member Type Diagnosis Age At Onset No Information Payers Payer name Insurance type Covered alliance party ID Kevin barragan(s) [facility] [id number] Social History Type Description Quantity Date Captured [...]
[2024-12-13 09:57] LABS: Glucose, Whole Blood 172 mg/dL (60-115)
[2024-12-13 10:02] VITALS: BP 169/99; PULSE 94; RESP 16; TEMP 36.7; O2SAT 96; BMI 35.7
--- NOTE | 2024-12-13 10:03 | P.CONAN_ITS ---
[facility] Active Problems Active Problems: All Active Problems Heartburn (Acute) Anticoagulant long-term use (Acute) Pernicious anemia (Acute) Colon cancer screening (Acute) Sciatica (Acute) Annual physical exam (Acute) Essential hypertension (Acute) Type 2 diabetes mellitus with unspecified complications (Acute) Regional wall motion abnormality of heart (Acute) Hyperlipidemia (Acute) COVID-19 (Acute) DM type 2 (diabetes mellitus, type 2) (Acute) HTN (hypertension) (Acute) Past Medical History Medical History Hyperlipidemia COVID-19 DM type 2 (diabetes mellitus, type 2) HTN (hypertension) Kidney lump Functional capacity: independent ambulation Family History Family History Father No problems noted. Mother Hypertension Family history of problems with anesthesia: No Surgical History Surgical History H/O foot surgery History of gastric surgery History of Problems with Anesthesia: No Social History Social History Household Members Other:: , 3 sons, came from [place] 6 yrs ago Housing: House Patient Tobacco Use Status: Former Tobacco user e-Cigarette/Vaping Use: Never Used Advance Directives: No Advance Directives Information Provided: Yes Current occupational status: employed Cognitive needs: No Hearing needs: No Vision needs: Yes Meds Allergies Allergy/AdvReac Type Severity Reaction Status Date / Time No Known Allergies Allergy Verified 12/13/24 09:47 Active Medications: Current Medications Lactated Ringer's (Lr) 1,000 mls @ 100 mls/hr IVCONT .Q10H VELVET Home Medications ?Medication ?Instructions ?Recorded ?Confirmed ?Last Taken ?Type metformin 500 mg tablet 1,000 mg PO BID 09/15/21 12/13/24 12/12/24 History pen needle, diabetic 31 gauge x #50 ea 09/15/21 09/27/24 Unknown History 02/09 (BD Ultra-Fine Mini Pen Needle) glipizide 10 mg tablet 10 mg PO BID 07/04/22 12/13/24 Unknown History diltiazem HCl 240 mg 240 mg PO DAILY 07/05/23 12/13/24 12/13/24 History capsule,extended release 24 hr albuterol sulfate 90 mcg/actuation 1 puff inhalation Q4-6H PRN asthma 12/11/23 12/13/24 Unknown History aerosol inhaler tirzepatide 2.5 mg/0.5 mL 2.5 mg subcut QWEEK 12/12/24 12/13/24 12/04/24 History subcutaneous pen injector (Zaire) Exam Pertinent Lab Results Pertinent Lab Results: Laboratory Tests 12/13/24 09:53 POC Glucose 172 H Airway Mallampati Class: III TM Dist: >3cm Neck ROM: Full Heart: RRR Lungs: CTA Assessment and Plan Assessment Anesthesia Assessment: Anesthesia Plan Discussed and Chart Reviewed Final Anesthetic Review Family History of Problems with Anesthesia: No History of Problems with Anesthesia: No NPO: Yes ASA Class: III Final Preanesthetic Review: Meds/Allgs Chart Reviewed, Consent Obtained/Reviewed and Anes Risks/Benef Reviewed Patient Risk: Intermediate Procedure Risk: Low Anesthetic Plan Anesthetic Plan: MAC: Disposition: Standard PACU
[2024-12-13] MEDS: Lactated Ringers 1,000 ML 100 ML IVCONT (10:15)
--- NOTE | 2024-12-13 10:15 | MHC.SHP ---
Pre-Procedural Eval Section A - 24 Hr Update-Section A only Date of Service: 12/13/24 The patient is an INPATIENT: No The patient has been examined within 24 hours of the surgical procedure. The History & Physical has been completed within 30 days and I have reviewed it.: No Section B - Complete if H&P > 30 days Chief Complaint: Colon cancer screening, GERD Relevant Family History (Specify if Yes): No Relevant Social History: Tobacco Use (Former smoker) Present Medications: see Short Stay Collaborative assessment Medical History: Significant History (04/2023 patient had incisional hernia repair with mesh placement by Dr. Grajeda) History of Previous Operations: Relevant previous surgery/procedure and date(s) (History of gastric surgery) Allergies: Allergies Allergy/AdvReac Type Severity Reaction Status Date / Time No Known Allergies Allergy Verified 12/13/24 09:47 Review of Systems Sugical H&P ROS: Negative: Constitution, Cardiovascular, Respiratory and Gastrointestinal Exam Surgical H&P Exam: Normal: Heart, Normal: Lungs, Normal: Extremities and Normal: Abdomen Plan Diagnosis/Plan: Unchanged I have reviewed the history and physical and performed a pertinent physical examination on my patient. No changes have occurred unless specified. Time Spent With Patient Time: Total time managing care of this patient today ____ minutes.
--- NOTE | 2024-12-13 11:01 | P.OPN-COLO_ITS ---
Colonoscopy Operative Note Operative Note Date of Service: 12/13/24 Narrative: FLEXIBLE TRANSORAL UPPER GASTROINTESTINAL ENDOSCOPY WITH BIOPSIES AND SNARE POLYPECTOMY AND COLONOSCOPY TILL CECUM WITH BIOPSIES AND SNARE POLYPECTOMY Pre-op diagnosis: Colon cancer screening, GERD Post-op diagnosis: GERD, Gastritis, Gastric polyp, Colon Polyps, Diverticulosis, hemorrhoids Endoscopist:? Areli Sanchez MD Anesthesia:?MAC UPPER ENDOSCOPY Consent: Indications for the procedure and potential complications of bleeding, perforation, reaction to medications and missed diagnosis were discussed with the patient and informed consent was obtained. Instrument: Olympus GIF H 190 mid size upper endoscope Monitoring: Vital signs and clinical assessment, continuous EKG monitoring, Pulse oximetry, Carbon Dioxide monitoring and blood pressure monitoring were done throughout the procedure. Procedure: The patient was placed in the left lateral decubitis position and pre-procedure medications were administered and a bite block was placed. The endoscope was inserted into the mouth and advanced under direct vision to the third part of duodenum. A careful inspection was made as the upper endoscope was withdrawn including a retroflexed examination of the proximal stomach; Findings and interventions are described below. Findings: Larynx: Normal Esophagus: GE junction at 40 cms. No esophagitis or Villavicencio's. Stomach: Moderate diffuse gastric erythema - biopsies were obtained from the antrum. A 10-12 mm sessile polyp in the pre-pyloric area and protruding into the duodenal bulb - removed with a hot snare. Polyp was retrieved with a Eugene net. Grade 2 flap valve on retroflexed examination of the cardia. Duodenum: Normal bulb and descending duodenum Intervention: Biopsies as noted above COLONOSCOPY PROCEDURE NOTE Instrument: Olympus CF H 190 L variable stiffness adult colonoscope Monitoring: Vital signs and clinical assessment, intermittent blood pressure monitoring, continuous EKG monitoring, Pulse oximetry and Carbon Dioxide monitoring were done throughout the procedure. Please see anesthesia flowsheet. Colon withdrawl time was 35 minutes. Procedure: The patient was placed in the left lateral decubitis position and pre-procedure medications were administered. After a digital rectal examination of the ano-rectum, the video colonoscope was inserted into the rectum and advanced through the colon to the cecum. The colonoscope was slowly withdrawn in a retrograde panoramic fashion and the colon mucosa was carefully examined including a retroflexed view of the rectum. Findings and interventions are described below. Procedure Difficulty: without difficulty Findings: Terminal Ileum: Not evaluated Cecum: Normal Ascending Colon: Normal Transverse Colon: A 10 mm sessile polyp in the proximal TC - removed with a hot snare. A 15 - 18 mm pedunculated polyp at 90 cms - removed with a stiff hot snare. Polypectomy site was closed with 1 hemoclip and marked with endo kerethi. Polyp was retrieved with a Eugene net. A 10-12 mm sessile polyp at 90 cms - removed with a hot snare Descending Colon: Two 10-15 mm sessile polyps - removed with a hot and cold snare. Sigmoid Colon: A 10 mm sessile polyp - removed with a hot snare Rectum: Normal Ano-rectum: Moderate internal hemorrhoids Colon preparation: Good after copious irrigation. [place] Bowel Preparation Scale Right colon; 2 Transverse colon: 2 Left colon; 2 (0 = Unprepared colon segment with mucosa not seen due to solid stool that cannot be cleared. 1 = Portion of mucosa of the colon segment seen, but other areas of the colon segment not well seen due to staining, residual stool and/or opaque liquid. 2 = Minor amount of residual staining, small fragments of stool and/or opaque liquid, but mucosa of colon segment seen well. 3 = Entire mucosa of colon segment seen well with no residual staining, small fragments of stool or opaque liquid) Impression and Post Procedure Diagnosis: Endoscopy Findings: ESOPHAGUS: Normal STOMACH: A 10-12 mm sessile polyp in the pre-pyloric area and protruding into the duodenal bulb - removed with a hot snare. DUODENUM: Normal Colonoscopy Findings: Six medium sized polyps were removed Moderate hemorrhoids on retroflexed exam. Plan: I will send a letter with biopsy results Repeat Colonoscopy in 2 years if polyps are adenomatous and 10 year if polyps are hyperplastic. Above findings were reviewed with the patient and relevant handouts were given and the discharge area. BIOPSIES SHOWED: A. Gastric antrum, biopsy: Gastric antral mucosa with reactive changes and minimal chronic inactive gastritis; negative for intestinal metaplasia and dysplasia. B. Gastric body, biopsy: Gastric body mucosa with minimal chronic inactive gastritis; negative for intestinal metaplasia and dysplasia. C. Gastric polyp: Fundic gland polyp with hyperplastic changes, mild chronic inflammation, and focal erosion with active inflammation; negative for intestinal metaplasia and dysplasia. D. Colon, transverse at 90 cm, polyps: Tubular adenomas with serrated features, multiple pieces; negative for high-grade dysplasia and carcinoma. E. Colon, transverse, polyp: Tubular adenoma; negative for high-grade dysplasia and carcinoma. F. Colon, descending, polyps: Tubular adenomas, two pieces; negative for high- grade dysplasia and carcinoma. G. Colon, sigmoid, polyp: Tubular adenoma; negative for high-grade dysplasia and carcinoma. Comment: (A, B and C): Immunostains for H. pylori were negative Letter sent advising repeat colonoscopy in 2 years. Patient was placed on the colonoscopy recall list
[2024-12-13 11:55] VITALS: BP 89/51; PULSE 82; RESP 16; TEMP 36.6; O2SAT 96
[2024-12-13 12:00] VITALS: BP 104/60; PULSE 83; RESP 16; O2SAT 94
[2024-12-13 12:05] VITALS: BP 102/62; PULSE 84; RESP 16; O2SAT 94
[2024-12-13 12:10] VITALS: BP 122/71; PULSE 87; RESP 16; TEMP 36.6; O2SAT 96
--- NOTE | 2024-12-13 12:16 | HO.POSTANES ---
Post Anesthesia Evaluation Post Anesthesia Evaluation Date of Service: 12/13/24 Vital Signs: Vital Signs Temp Pulse Resp BP Pulse Ox O2 Del Method O2 Flow Rate 12/13/24 12:05 84 16 102/62 94 Nasal Cannula 2 12/13/24 12:00 83 16 104/60 94 Nasal Cannula 2 12/13/24 11:55 98 F 82 16 89/51 L 96 Simple Mask 6 12/13/24 10:02 98.0 F 94 16 169/99 H 96 Room Air Anesthesia: Monitored Mental Status: Awake Pain Control: Satisfactory Nausea/Vomiting: None Hydration: Adequate Anesthesia-Related Issues: No Anes. Related Issues
[2024-12-13 12:25] VITALS: BP 120/79; PULSE 82; RESP 16; TEMP 36.6; O2SAT 96
== END 2024-12-13 12:35 | disposition home or self-care (01) ==
PROVIDERS: PCP Internal Medicine; Visit Provider Internal Medicine Gastroenterology
PROC: (CPT 45385; principal; 2024-12-13 10:20)
DX: Z12.11 Encounter for screening for malignant neoplasm of colon (principal); D12.3 Benign neoplasm of transverse colon; D12.4 Benign neoplasm of descending colon; D12.5 Benign neoplasm of sigmoid colon; K57.30 Diverticulosis of large intestine without perforation or abscess without bleeding; K64.8 Other hemorrhoids; K21.9 Gastro-esophageal reflux disease without esophagitis; K29.50 Unspecified chronic gastritis without bleeding; K31.7 Polyp of stomach and duodenum; E11.9 Type 2 diabetes mellitus without complications; I10 Essential (primary) hypertension; E78.5 Hyperlipidemia, unspecified; Z98.890 Other specified postprocedural states; Z79.4 Long term (current) use of insulin; Z79.84 Long term (current) use of oral hypoglycemic drugs; Z79.85 Long-term (current) use of injectable non-insulin antidiabetic drugs; Z79.899 Other long term (current) drug therapy; Z87.891 Personal history of nicotine dependence
CPT/HCPCS: 45385; 45380; 45381; 43251; 43239; 82947; 88305; 88342; J2003; J2704

== ENCOUNTER → 2024-12-13 08:38 | Outpatient (BNV) | payer OTHER, SELFPAY | PROVIDERS: PCP Internal Medicine; Visit Provider Internal Medicine Gastroenterology | DX: Z12.11 Encounter for screening for malignant neoplasm of colon (principal); D12.3 Benign neoplasm of transverse colon; D12.4 Benign neoplasm of descending colon; D12.5 Benign neoplasm of sigmoid colon; K21.9 Gastro-esophageal reflux disease without esophagitis; K29.70 Gastritis, unspecified, without bleeding; K31.7 Polyp of stomach and duodenum | CPT/HCPCS: 43239; 43251; 45385 ==

== ENCOUNTER 2025-09-29 13:55 | Outpatient (AMB) | payer OTHER, SELFPAY ==
[2025-09-29 14:28] VITALS: BP 114/86; PULSE 105; RESP 18; TEMP 37; O2SAT 98; BMI 34.4
--- NOTE | 2025-09-29 14:28 | A.OFFPC_ITS ---
Vital Signs 09/29/25 14:28 Height 6 ft Weight 254 lb BMI 34.4 BP 114/86 Blood Pressure Location Lt brachial Position Sitting Respiration 18 Pulse 105 H Pulse Source Pulse Oximeter Temp 98.6 F Temp Source Oral Pulse Oximetry (%) 98 Oxygen Delivery Method Room Air Intake Visit Reasons: PE - see comments Intake Note: Pt is here today for PE. Pt states that he injured his R hand pointing finger last week and now its swollen and painful. Pt was on antibiotic. Allergies No Known Allergies Allergy (Verified 09/29/25 14:32) Medication List - Last Reconciled 09/29/25 by Amanda Kline MD albuterol sulfate 90 mcg/actuation 1 puff inhalation Q4-6H PRN amoxicillin-pot clavulanate 875-125 mg 1 tab PO BID diltiazem HCl CD 360 mg PO DAILY empagliflozin (Jardiance) 10 mg PO DAILY glipizide 10 mg PO BID hydrochlorothiazide 25 mg PO BID insulin glargine (Lantus Solostar U-100 Insulin) 60 units subcut DAILY insulin lispro (Humalog KwikPen (U-100) Insulin) 20 units (0.2 mL) subcut BID lisinopril 30 mg PO DAILY magnesium chloride 500mg daily metformin 1,000 mg PO BID metoprolol succinate ER 50 mg PO DAILY pantoprazole 20 mg PO QAM pen needle, diabetic (BD Ultra-Fine Mini Pen Needle) As directed tirzepatide (Mounjaro) 10 mg subcut QWEEK vardenafil 20 mg PO DAILY Tobacco use date assessed: 09/29/25 Dental Screening Dental Screen Date: 09/29/25 Did you have a dental visit in the last 12 months?: Yes Did you have a dental problem in the last 6 months where you did not have access to dental care?: No Was dental information given to patient?: Patient has dentist HPI PE - see comments HPI Details Pt presents for a physical. He injured his left index finger at work 2 weeks. He sustained puncture wound with metal jermaine. He was seen in walk in and prescribed doxycycline and prednisone. Patient complains of persistent swelling and tenderness of the index finger worse over PIP joint. The erythema and warmth improved after antibiotic and the wound closed. Patient is established with endocrinology for insulin-dependent diabetes which has not been well controlled according to the patient because of diet noncompliance. [facility] Medical History (Updated 09/29/25 @ 18:10 by Amanda Kline MD) Heartburn Colon cancer screening Hyperlipidemia COVID-19 DM type 2 (diabetes mellitus, type 2) HTN (hypertension) Kidney lump Surgical History H/O foot surgery History of gastric surgery Family History Father No problems noted. Mother Hypertension Social History Household Members Other:: , 3 sons, came from [place] 6 yrs ago Housing: House Are you a primary care aid to a significant other at home: No Do you presently have visiting nurse or other home services: No Patient Tobacco Use Status: Former Tobacco user Tobacco use type: Cigarette Years Smoked: 20 e-Cigarette/Vaping Use: Never Used service: No Current occupational status: employed Cognitive needs: No Hearing needs: No Vision needs: Yes Questionnaire PHQ-9 Over the last 2 weeks, how often have you been bothered by any of the following problems? 1. Little interest or pleasure in doing things: not at all 2. Feeling down, depressed, or hopeless: not at all 3. Trouble falling or staying asleep, or sleeping too much: not at all 4. Feeling tired or having little energy: not at all 5. Poor appetite or overeating: not at all 6. Feeling bad about yourself - or that you are a failure or have let yourself or your family down: not at all 7. Trouble concentrating on things, such as reading the newspaper or watching television: not at all 8. Moving or speaking so slowly that other people could have noticed. Or the opposite - being so fidgety or restless that you have been moving around a lot more than usual: not at all 9. Thoughts that you would be better off or of hurting yourself in some way: not at all Total score: 0 Depression Screening Interpretation: Negative Depression Screening Done: Yes 21280 - PHQ-9 Billing: Yes Source: Developed by Drs. Yuriy Ayala, Juanita Gutierrez, Rayray Barnett and colleagues, with an educational zora from [employer]. Thrive Questionnaire Date Thrive assessed: 09/29/25 I am a: Patient What is your living situation today?: I have a steady place to live Within the past 12 months, did the food you bought not last and you didn't have the money to get more?: Never true Within the past 12 months, did you worry whether your food would run out before you got money to buy more?: Never true Do you have trouble paying for medicines?: No Do you have trouble getting transportation to medical appointments?: No Do you have trouble paying your heating and electricity bill?: No Do you have trouble taking care of your child, family member or friend?: No Do you have trouble with day-to-day activities such as bathing, preparing meals, shopping, managing finances, etc.?: No Are you currently unemployed and looking for a job?: No Are you interested in more education?: No Please select the resources that you would like help with: None THRIVE Score: 0 AUDIT C Alcohol Use Questionnaire (AUDIT-C) 1. How often do you have a drink containing alcohol?: Never 3. How often do you have six or more drinks on one occasion?: Never Total Score: 0 LAINE-7 AMB Questionnaire LAINE-7 Date LAINE - 7 assessed: 09/29/25 Feeling nervous, anxious, or on edge: 0 = Not at all Not being able to stop or control worryin = Not at all Worrying too much about different things: 0 = Not at all Trouble relaxin = Not at all Being so restless that it is hard to sit still: 0 = Not at all Becoming easily annoyed or irritable: 0 = Not at all Feeling afraid as if something awful might happen: 0 = Not at all Total LAINE-7 score (0-4 normal; 5-9 mild; 10-14 moderate; 15-21 severe): 0 Source: Developed by Drs. Yuriy Ayala, Juanita Gutierrez, Rayray Barnett and colleagues, with an educational zora from [employer]. LAINE-7 Assessment Billing LAINE-7 Assessment Tool: LAINE-7 Assessment 09413 Review of Systems Const All systems reviewed & are unremarkable except as noted in HPI and below Eyes Reports no additional complaints ENT Reports no additional complaints Card Reports no additional complaints Resp Reports no additional complaints GI Reports no additional complaints Reports no additional complaints Physical exam (Primary Care) Vital Signs: Last Vital Signs Temp 98.6 F 09/29/25 14:28 Pulse 105 H 09/29/25 14:28 Resp 18 09/29/25 14:28 BP 114/86 09/29/25 14:28 Pulse Ox 98 09/29/25 14:28 Oxygen Delivery Method Room Air 09/29/25 14:28 BMI result Body Mass Index 34.4 Tobacco/Smoking Status: Tobacco use Status Tobacco use date assessed 09/29/25 09/29/25 14:37 Patient Tobacco Use Status Former Tobacco user 09/29/25 14:37 Tobacco use type Cigarette 09/29/25 14:37 e-Cigarette/Vaping Use Never Used 09/29/25 14:37 PHQ-9: PHQ-9 Score PHQ-9: Total score 0 09/29/25 14:48 Depression Screening Interpretation: Negative Thrive Assessment: Date of Thrive Assessment Date Thrive assessed 09/29/25 09/29/25 14:37 Const General: no acute distress HENMT Head: Yes normal to inspection Ears: TM's normal bilaterally Face and sinus: Yes normal facial exam Eyes General: appearance normal, both eyes and all related structures Neck Neck: Yes no lymphadenopathy and Yes supple Resp Effort & Inspection: normal respiratory effort Auscultation: clear to auscultation bilaterally Cardio Rhythm: regular rhythm Heart sounds: S1 normal heart sound present and S2 normal heart sound present GI Inspection: Yes normal to inspection Palpation (GI): Soft to palpation Percussion: Yes normal to percussion Auscultation: normal bowel sounds Extrem Other: Left index finger with slight erythema and soft tissue swelling but no warmth mainly over DIP and PIP joints, slightly decreased range of motion in PIP and DIP joint General: Yes no clubbing, cyanosis or edema Results AMB Hemoglobin A1c AMB Hemoglobin A1c 8.0 % Last Edit by HANNAH Aquino on 09/29/25 14:5 7 Results Reviewed Results Reviewed: Laboratory Last Values Hgb A1c (Clinic) 8.0 % (4.0-6.0) H 09/29/25 14:55 Coding Level of Care Code Est Pt Prev Care 40-64y(10456) Diagnoses Abscess of left index finger L02.512 DM type 2 (diabetes mellitus, type 2) E11.9 HTN (hypertension) I10 Annual physical exam Z00.00 Additional Codes LAINE-7 Assessment Billing - LAINE-7 Assessment Tool: LAINE-7 Assessment 64942 ([id number]) PHQ-9 - 86340 - PHQ-9 Billing: Yes ([id number]) Assessment & Plan Assessment & Plan (1) Abscess of left index finger: Code(s): L02.512 - Cutaneous abscess of left hand Category: Medical Plan: For residual cellulitis Augmentin 875 b.i.d. for 10 days is prescribed. Patient has an appointment with hand surgeon next month for tendinopathy (2) DM type 2 (diabetes mellitus, type 2): Comment: Poorly controlled x 20 years, f/u Endo at [facility] Agapito Valentino, A1C 7.2 06/17 Code(s): E11.9 - Type 2 diabetes mellitus without complications Category: Medical Plan: A1c is 8.0 today. Patient has an appointment with flight engineer performance qualified next month. He will obtain records from cardiolgy and will follow-up in 6 weeks (3) HTN (hypertension): Comment: x 20 years, f/u cardiology ? [facility] Code(s): I10 - Essential (primary) hypertension Category: Medical Plan: Continue current medications and obtain records from [facility] (4) Annual physical exam: Code(s): Z00.00 - Encounter for general adult medical examination without abnormal findings Category: Medical Plan: Well-balanced ADA diet regular physical activity discussed with the patient. He is up-to-date with colonoscopy. Patient will return for fasting blood work and follow-up in 6 weeks Orders: Orders AMB Hemoglobin A1c Today Z13.9 - Encounter for screening, unspecified Comprehensive [place]. Panel Fast Today E11.9 - Type 2 diabetes mellitus without complications Complete Blood Count Auto Diff Today E11.9 - Type 2 diabetes mellitus without complications Lipid Panel Today E11.9 - Type 2 diabetes mellitus without complications Microalbumin, Random (w Creat) Today E11.9 - Type 2 diabetes mellitus without complications PSA,Total (Free>4and<10) Today E11.9 - Type 2 diabetes mellitus without complications UA w Microscopic Today E11.9 - Type 2 diabetes mellitus without complications XR hand LT min 3V Today L02.512 - Cutaneous abscess of left hand Medications: New amoxicillin-pot clavulanate 875-125 mg 1 tab PO BID 20 tabs 0RF Changed From empagliflozin (Jardiance) 25 mg PO DAILY 90 tabs 3RF To empagliflozin (Jardiance) 10 mg PO DAILY From insulin glargine (Lantus Solostar U-100 Insulin) 60 units (0.6 mL) subcut DAILY 45 mL 3RF To insulin glargine (Lantus Solostar U-100 Insulin) 60-70 60 units subcut DAILY From lisinopril 20 mg PO DAILY 90 tabs 0RF To lisinopril 30 mg PO DAILY
== END 2025-09-29 16:44 | disposition home or self-care (01) ==
LOC: HO.HMCC 13:56
PROVIDERS: PCP Internal Medicine; Visit Provider Internal Medicine
DX: Z00.00 Encounter for general adult medical examination without abnormal findings (principal); E11.9 Type 2 diabetes mellitus without complications; L02.512 Cutaneous abscess of left hand; I10 Essential (primary) hypertension

== ENCOUNTER → 2025-09-29 13:55 | Outpatient (BNVA) | payer OTHER, SELFPAY | PROVIDERS: PCP Internal Medicine; Visit Provider Internal Medicine | DX: Z00.00 Encounter for general adult medical examination without abnormal findings (principal); L02.512 Cutaneous abscess of left hand; E11.9 Type 2 diabetes mellitus without complications; I10 Essential (primary) hypertension | CPT/HCPCS: 83036; 96127 ==

== ENCOUNTER 2025-09-30 08:34 | Outpatient (REF) | payer OTHER, SELFPAY ==
--- OUTSIDE RECORDS SUMMARY | 2023-02-21 07:55 | XMS_ITS | Continuity of Care Document ---
Author Organization [facility] Address [address] [place] [address] [address] [place] [address] Phone Care Team Providers Care Dental Assistant Teacher Name Role Phone Eugenio PIERCE FACS RVT Christine SANTO Unavailable Unavailable Allergies, Adverse Reactions, Alerts Substance Reaction Status Criticality NSAIDS (Non-Steroidal Anti-Inflammatory Drug) Active No Information adhesive Active No Information lidocaine Active No Information latex Active No Information Medications Medication Instructions Dosage Effective Dates (start - stop) Status Comments LANTUS (unknown strength) Not Available - Active GLIPIZIDE (unknown strength) Not Available - Active METOPROLOL SUCCINATE (unknown strength) Not Available - Active METFORMIN HCL (unknown strength) Not Available - Active OLMESARTAN MEDOXOMIL (unknown strength) Not Available - Active DILTIAZEM HCL (unknown strength) Not Available - Active ATORVASTATIN CALCIUM (unknown strength) Not Available - Active Procedures Procedure Date Office/Outpt E&M Established 15 Mins Jan Duplex Scan-extrem Veins; Comp Offic Cons New/estab Mod-hi 60 23 Advance Directives Directive Yes / No Effective Date File Name No Information Encounters Encounter Description Practice Location Reason(s) For Visit Diagnoses Date Provider Providers Copied on Encounter [facility], [address] [place] [address] [address], [place], [id number], [place] tel:[phone] [facility] No Information Jan- 3 Eugenio PIERCE FACS RVTammy Ott. [address] [facility], [facility] [address], [place], [address], [place]. tel:[phone] Referring Provider: Halley Quiroz DO, Rd, [place], [place], [facility]. tel:[phone] Office/Outpt E&M Established 15 Mins [facility], [address] [place] [address] [address] [place], [id number], tel:[phone] [facility] [place] [facility] Venous insufficiency (chronic) (peripheral) 3 Eugenio PIERCE FACS Tammy Ott. [address] [place] [address], [place], [address], . tel:[phone] Referring Provider: Halley Quiroz DO, Rd, [place], [place], [facility]. tel:[phone] [facility], [address] [place] [address] Dr Tilley [address]a [place], [id number], tel:[phone] [facility] [place] Venous insufficiency (chronic) (peripheral) 3 Eugenio PIERCE FACS Tammy Ott. [address] [place] [address], [place], [address], . tel:[phone] Referring Provider: Halley Quiroz DO, Rd, [place], [place], [facility]. tel:[phone] Offic Cons New/estab Mod-hi 60 [facility], [address] [place] [address] Dr Tilley [address]Ana [place], [id number], tel:[phone] [facility] [place] Venous insufficiency (chronic) (peripheral)Es sential (primary) hypertension 3 Eugenio PIERCE FACS Tammy Ott. [address] [place] [address], [place] [address], [place], [address], . tel:[phone] Referring Provider: Halley Quiroz DO, Rd, [place], [place], [facility]. tel:[phone] Family History Family Member Type Diagnosis Age At Onset No Information Payers Payer name Insurance type Covered republican ID Kevin barragan(s) [facility] [id number] Social History Type Description Quantity Date Captured Comments Sex Male Smoking Status No Information Chief Complaint And Reason For Visit No Information Reason For Referral Reason For Referral No Information Plan Of Treatment Date Type Action Status Goal Diet education completed Goal Tobacco cessation counseling completed Referral Ordered: Weight management: Referral to physician timeframe: 3 Months (related to Body mass index (BMI) 34.0-34.9, adult) ordered History Of Present Illness Encounter Date Complaint History Of Prese nt Illness No Information Functional Status Date Functional Assessmen t No Information Instructions Date Instruction Additional Infor mation Diet education Related to Body mass index (BMI) 34.0-34.9, adult Giving Encouragement to exercise Related to Body mass index (BMI) 34.0-34.9, adult Lifestyle education Related to B landon mass index (BMI) 34.0-34.9, adult Patient education booklet given Related to Venous insufficiency (chronic) (peripheral) Assessments Type Assessment Date No Information Patient Care Teams Name Effective Dates (start - stop) Status Members No Information
--- NOTE | ~2025-09-30 | XR_ITS ---
EXAMINATION: XR FINGER, LEFT CLINICAL INFORMATION: L02.512 - Cutaneous abscess of left hand. 2nd digit. COMPARISON: None available. TECHNIQUE: 3 views of the left second finger. FINDINGS: There is soft tissue swelling of the distal left second finger, greatest adjacent to the DIP joint. There is slight flexion at the DIP joint. There is osteopenia and question cortical bone loss of the volar aspect of the distal phalanx at the DIP joint appreciated on the lateral view questionable for osteomyelitis. No fracture or dislocation. No abnormal air collection in the soft tissues. No soft tissue foreign body. XR/XR finger LT min 2V IMPRESSION: Soft tissue swelling of the distal left second finger at the DIP joint and slight flexion of the DIP joint. Question osteomyelitis of the volar distal phalanx at the DIP joint. Electronically signed by: Angela Sarah MD 09/30/2025 09:13 AM EST
--- OUTSIDE RECORDS SUMMARY | 2025-09-30 08:58 | XMS_ITS | Clinical Summary ---
Author Organization [facility] [employer] Address [address] [place] [address] Phone Care Team Providers Care Mirror Silverer Name Role Phone Juan Zuniga DO Primary Care Provider [phone] Allergies No known active allergies Medications empagliflozin (JARDIANCE) 10 mg tablet Take 1 tablet (10 mg total) by mouth 1 (one) time each day. Route: Take by mouth. - Oral Active glipiZIDE (GLUCOTROL XL) 10 mg 24 hr tablet 1 tablet (10 mg total) 2 (two) times a day. Do not crush, chew, or split. Route: Take 1 Tablet by mouth daily. - Oral Active insulin glargine,hum.re c.anlog (LANTUS SOLOSTAR U-100 INSULIN SUBQ) 70 Units at bedtime. Active insulin lispro 100 unit/mL injection 24 Units 3 (three) times a day before meals. -Administer within 15 minutes of a meal Active metFORMIN (GLUCOPHAGE) 500 mg tablet Take 2 tablets (1,000 mg total) by mouth 2 (two) times a day with meals. Route: Take 1 Tablet by mouth 2 times daily (with meals). - Oral Active pantoprazole (PROTONIX) 20 mg EC tablet Do not crush, chew, or split. Route: Take 1 Tablet by mouth daily. - Oral Active tirzepatide (Mounjaro) 2.5 mg/0.5 mL injection Inject 0.5 mL (2.5 mg total) under the skin every 7 (seven) days. Active ammonium lactate (AmLactin) 12 % lotion Apply topically if needed for dry skin. 400 g 2 4 11/14/20 25 Active metoprolol succinate (TOPROL-XL) 50 mg 24 hr tablet Take 1 tablet (50 mg total) by mouth 1 (one) time each day. Do not crush or chew. 90 tablet 3 5 Active dilTIAZem CD (Cardizem CD) 360 mg 24 hr capsule Take 1 capsule (360 mg total) by mouth 1 (one) time each day. 90 each 3 5 Active lisinopriL (PRINIVIL,ZESTR IL) 30 mg tablet Take 1 tablet (30 mg total) by mouth 2 (two) times a day. 180 tablet 3 5 Active hydroCHLOROthia zide (HYDRODIURIL) 25 mg tablet TAKE 1 TABLET BY MOUTH 1 TIME EACH DAY. 90 tablet 3 5 Active Active Problems Problem Noted Date Diagnosed Date Primary hypertension 10/21/2024 Assessment & Plan (10/21/2024 9:08 AM EST): Patient has history of hypertension which is poorly controlled. He is on multiple antihypertensive therapies including metoprolol, diltiazem, lisinopril and hydrochlorothiazide. Blood pressure today 146/108. Blood pressure readings at home have also been elevated. I have increased his diltiazem to 360 mg daily and I have asked him to take his metoprolol at bedtime. Additionally I have ordered some blood work today including plasma metanephrines and I have ordered a renal artery duplex. 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 I have also placed a referral to nephrology. I will see the patient back in 3 months for reassessment in the meantime he will continue to monitor his blood pressures at home and call me if his blood pressure readings do not improve. Orders: Vascular US duplex renal artery/venous bilateral; Future Metanephrines, plasma free; Future Comprehensive metabolic panel; Future Metanephrines, plasma free Comprehensive metabolic panel Ambulatory referral to Nephrology; Future HLD (hyperlipidemia) 08/26/2024 Abnormal EKG 06/18/2024 Murmur 06/18/2024 Resolved Problems Problem Noted Date Diagnosed Date Resolved Date Chest pain 08/26/2024 10/21/2024 Encounters Date Type Department Care Team Description 07/10/2025 2:45 PM EDT Office Visit Orthopedic Surgery [facility] [address] [phone] Sebastián Short DPM Controlled type 2 diabetes with neuropathy (CMS/HCC V24, CMS/HCC V28) (Primary Dx); Metatarsalgia of left foot; Contusion of left great toe with damage to nail, subsequent encounter from Last 3 Months Social History Tobacco Use Types Packs/Day Years Used Date Smoking Tobacco: Former Cigarettes Q uit: 2013 Smokeless Tobacco: Never Tobacco Cessation:Counseling Given: Not Answered Alcohol Use Standard Drinks/Week Comments Not Currently 0 (1 standard drink = 0.6 oz pur e alcohol) Sex and Gender Information Value Date Recorded Sex Assigned at Not on file Legal Sex Male 7:50 AM EST Gender Identity Not on file Sexual Orientation Not on file Obstetrics History Last Filed Vital Signs Vital Sign Reading Time Taken Comments Blood Pressure 122/82 01/24/2025 11:24 AM EST Pulse 98 01/24/2025 11:00 AM EST Temperature - - Respiratory Rate - - Oxygen Saturation 97% 01/24/2025 11:00 AM EST Inhaled Oxygen Concentration - - Weight 121 kg (266 lb) 02/06/2025 3:34 PM EDT Height 182.9 cm (6' 0.01 ) 02/06/2025 3:34 PM ED T Body Mass Index 36.07 02/06/2025 3:34 PM EDT Plan of Treatment Upcoming Encounters Date Type Department Care Team (Late st Contact Info) Description 01/12/2026 3:00 PM EST Office Visit Orthopedic Surgery [facility] [address] [phone] Sebastián Short DPM [address] [place] [phone] Health Maintenance Due Date Last Done Comments Colorectal Cancer Screening: Colonoscopy 1973 Diabetes: Annual Foot Exam 1983 Diabetes: Annual Retina Eye Exam 1983 Hepatitis B Vaccines (1 of 3 - 19+ 3-dose series) 1992 Pneumococcal Vaccine: 50+ Years (1 of 2 - PCV) 1992 Cholesterol Screening (Lipid Panel) 10/30/2022 HIV Screening 10/30/2022 Hepatitis C Screening 10/30/2022 Social Influencers of Health Screening 10/30/2022 RSV Immunization Adult Patients (1 - Risk 50-74 years 1-dose series) 2023 Zoster Vaccines (1 of 2) 2023 Depression Screening 11/27/2024 Diabetes: Blood Sugar Contro l Test (HGBA1C) 06/30/2025 COVID-19 Vaccine ( - 2023-2 5 season) 2025 Influenza Vaccine (#1) 2025 Diabetes: Annual Urine Albumin-Creatinine Ratio (uACR) 12/11/2025 12/11/2024 Diabetes: Annual GFR (Glomerular Filtration Rate) 12/11/2025 12/11/2024, 10/21/2024 Hypertension/CHF/CAD Annual BMP Blood Test 12/11/2025 12/11/2024, 10/21/2024 DTaP,Tdap,and Td Vaccines (2 - Td or Tdap) 07/16/2033 07/16/2023 HIB Vaccines Aged Out No longer eligi ble based on patient's age to complete this topic HPV Vaccines Aged Out No longer eligi ble based on patient's age to complete this topic Hepatitis A Vaccines Aged Out No long er eligible based on patient's age to complete this topic IPV Vaccines Aged Out No longer eligi ble based on patient's age to complete this topic MMR Vaccines Aged Out No longer eligi ble based on patient's age to complete this topic Meningococcal ACWY Vaccine Aged Out N o longer eligible based on patient's age to complete this topic Meningococcal B Vaccine Aged Out No l onger eligible based on patient's age to complete this topic RSV Immunization Patients Under 20 months Aged Out No longer eligible b ased on patient's age to complete this topic Varicella Vaccines Aged Out No longer eligible based on patient's age to complete this topic Procedures Procedure Name Priority Date/Time Associated Diagnosis Comments COMPREHENSIVE METABOLIC PANEL Routine 10/21/2024 8:48 AM EST Primary hypertension from Last 3 Months or Most Recently Relevant to Health Maintenance Results * (ABNORMAL) Comprehensive metabolic panel (10/21/2024 8:48 AM EST) Glucose 164(H) 70 - 99 mg/dL [facility] Blood Urea Nitrogen (BUN) 21 6 - 24 mg/dL [facility] 1 Creatinine 1.20 0.76 - 1.27 mg/dL [facility] 1 eGFR 73 >59 mL/min/1. 73 [facility] 1 BUN/Creatinine Ratio 18 9 - 20 [facility] 1 Sodium 144 134 - 144 mmol/L [facility] 1 Potassium 4.6 3.5 - 5.2 mmol/L [facility] 1 Chloride 100 96 - 106 mmol/L [facility] 1 Carbon Dioxide 24 20 - 29 mmol/L [facility] 1 Calcium 10.1 8.7 - 10.2 mg/dL [facility] 1 Protein Total 7.3 6.0 - 8.5 g/dL [facility] 1 Albumin 4.5 3.8 - 4.9 g/dL [facility] 1 Globulin Total 2.8 1.5 - 4.5 g/dL [facility] 1 Bilirubin Total 0.2 0.0 - 1.2 mg/dL [facility] 1 Alkaline Phosphatase 69 44 - 121 IU/L [facility] 1 Aspartate aminotransferase (AST) 34 0 - 40 IU/L [facility] 1 Alanine Aminotransferase (ALT) 62(H) 0 - 44 IU/L [facility] 1 Blood Venous blood specimen / Unknown 10/21/2024 8:48 AM EST 10/21/2024 Narrative [facility] 1 - 10/22/2024 4:06 AM EST Performed at: 01 - [facility] [address] [id number] [employer] Apprentice: Theodora Collins MD, Phone: [phone] us Elana Albright PATTERN DEVELOPER LAB BLOOD ORDERABLES Final R esult [facility] 1 from Last 3 Months or Most Recently Relevant to Health Maintenance Insurance [facility] [address] [place] [address] [facility] Care Teams Mirror Silverer Relationship Specialty Start Date End Date Juan Zuniga DO [address] [place] [id number] PCP - General 04/02/24
--- OUTSIDE RECORDS SUMMARY | 2025-09-30 08:58 | XMS_ITS | Clinical Summary ---
Author Organization [facility] Address [address] [place] [phone] Phone Care Team Providers Care Film Critic Name Role Phone Amanda Kline MD Primary Care Provider Allergies No known active allergies Medications hydroCHLOROthiaz bria (HYDRODIURIL) 25 MG tablet Take 1 tablet by mouth 2 (two) times a day. 08/05/20 23 Active metoprolol succinate (TOPROL-XL) 50 MG 24 hr tablet Take 50 mg by mouth every morning. 06/30/20 23 Active dilTIAZem (TIAZAC) 360 MG 24 hr capsule Take 360 mg by mouth every morning. 06/02/20 23 Active ELIQUIS 5 mg tablet Take 1 tablet by mouth 2 (two) times a day. 08/04/20 23 Active lisinopril (PRINIVIL,ZESTRI L) 30 MG tablet Take 1 tablet by mouth daily. 08/30/20 24 Active pantoprazole (PROTONIX) 20 MG tablet Take 20 mg by mouth daily. Active atorvastatin (LIPITOR) 40 MG tablet Take 40 mg by mouth once. Active blood sugar diagnostic Strp strips 1 each by Miscellaneous route as needed. Active FREESTYLE LITE Strp stripsIndication s:Type 2 diabetes mellitus with hyperglycemia, with long-term current use of insulin 1 each by Miscellaneous route every morning. 100 strip 3 01/20/20 25 Active LANTUS SOLOSTAR U-100 INSULIN 100 unit/mL (3 mL) InPn injection pen 60-70 Units under the skin at bedtime 60 mL 1 02/25/20 25 Active metFORMIN (GLUCOPHAGE) 500 MG tablet Take 2 tablets (1,000 mg total) by mouth 2 (two) times a day. 360 tablet 1 04/03/20 25 Active glipiZIDE (GLUCOTROL) 10 MG tabletIndication s:Type 2 diabetes mellitus with hyperglycemia, with long-term current use of insulin Take 1 tablet (10 mg total) by mouth 2 (two) times a day. 180 tablet 1 04/03/20 25 Active FREESTYLE CARLOS 3 PLUS SENSOR DeviIndications: Type 2 diabetes mellitus with hyperglycemia, with long-term current use of insulin To monitor the blood glucose, to change the sensor every 15 days 6 each 3 05/01/20 25 Active JARDIANCE 10 mg tabletIndication s:Type 2 diabetes mellitus with hyperglycemia, with long-term current use of insulin Take 1 tablet (10 mg total) by mouth every morning. 90 tablet 1 06/24/20 25 Active insulin aspart U-100 (NOVOLOG) 100 unit/mL (3 mL) injection penIndications:T ype 2 diabetes mellitus with hyperglycemia, with long-term current use of insulin Inject 20 Units under the skin 3 (three) times a day with meals. 60 mL 1 06/25/20 25 Active tirzepatide (MOUNJARO) 10 mg/0.5 mL PnIj subcutaneous penIndications:T ype 2 diabetes mellitus with hyperglycemia, with long-term current use of insulin Inject 0.5 mL (10 mg total) under the skin every 7 days. 2 mL 2 09/22/20 25 Active tirzepatide (MOUNJARO) 10 mg/0.5 mL PnIj subcutaneous penIndications:T ype 2 diabetes mellitus with hyperglycemia, with long-term current use of insulin Inject 0.5 mL (10 mg total) under the skin every 7 days. 2 mL 3 06/24/20 25 025 Discontin ued(Reord er) Active Problems Problem Noted Date Diagnosed Date assisted current use of insulin 01/07/2025 Assessment & Plan (01/07/2025 10:59 AM EST): Will lower both his lantus and humalog by 4 units to help prevent hypoglycemia Long-term (current) use of i njectable non-insulin antidiabetic drugs 01/07/2025 Assessment & Plan (01/07/2025 11:00 AM EST): Will increase his mounjaro dosing to see if we can continue to lower his insulin use director long term care current use of oral hypoglycemic drug 01/07/2025 Assessment & Plan (01/07/2025 11:00 AM EST): Will maintain metformin, jardiance, and glipizide dosing Type 2 diabetes mellitus wit h hyperglycemia, with long-term current use of insulin 09/04/2023 Assessment & Plan (09/15/2025 9:43 PM EDT): Worsening control with last A1c up at 9% in 08/2025 from 7.7% in 02/2025. Average glucose 234, GMI 8.9%, time in range only 26%. Postprandial spikes especially at lunchtime to the 300s on carlos 3 CGM download. Patient is currently taking maximum doses of metformin, glipizide, 10 mg Jardiance, 10 mg Mounjaro weekly, 65 to 70 units of Lantus at bedtime and about 16 units of NovoLog with his 9 AM snack and about 20 units with his dinner. He does not take any NovoLog with his 6 AM breakfast and mostly missing the lunchtime NovoLog. -Discussed importance to improve postprandial spikes. -Increase NovoLog by 4 units with each main meal, make sure that injected within 15 minutes before start of meal. -Do not miss lunchtime NovoLog -Adjust Lantus by 4 units to keep fasting glucose below the 130 range. -Reviewed symptoms, prevention and treatment of hypoglycemia -Enter insulin doses to carlos CGM -Call with blood sugar problems -Follow-up with Jane on 12/26/2025. -Fasting labs prior to next appointment Assessment & Plan (07/02/2025 3:26 PM EDT): Control is improving based upon the patient's last A1C of 7.7% and his freestyle carlos 3 sensor download. No frequent or severe hypoglycemia.Will increase the mounjaro to 10 mg weekly and lower his insulins to further help improve control with lessening the risk of lows. Continue to work on eating healthy and being active. To call or message with any issues managing his glucose levels. Up to date with opho. Labs ordered Assessment & Plan (01/07/2025 10:58 AM EST): Control is not optimal based upon his recent A1C of 8.8% but is showing improvement based upon the patient's freestyle carlos 3 sensor download. No frequent or severe hypoglycemia. He has had a couple a couple lows, he thinks due to being more active. He will correct and then is fine. He would liek to try and increase his mounjaro to see if we can lower his insulin use. Will increase the mounjaro to 7.5 mg weekly and lower both of his insulin by 4 units. Continue to work on eating healthy and being active. To call or message with any issues managing his glucose levels. Up to date with ophtho. Reviewed labs from 12/11/[address] Valentino. Labs ordered to be done prior to next visit Assessment & Plan (12/08/2024 9:10 PM EST): Improved but suboptimal control by carlos CGM download with average glucose 192 and GMI 7.9%. Postprandial spikes remain an issue. Sedentary since the left foot wound. Mounjaro 2.5 mg added in 08/2024, taking it on Wednesdays without side effect. He remains on 65 units of Lantus at bedtime and 15 to 20 units of Humalog before lunch 3 times a day and on Jardiance 10 mg in the morning and on the metformin 1000 mg twice a day and on glipizide 10 mg twice a day. Scheduled for upper and lower endoscopy on 12/13/2024. -Increase Mounjaro to 5 mg weekly. -Increase Humalog by 2 to 4 units before each main meal. -Hold Jardiance, metformin, glipizide, Humalog the morning of the colonoscopy -Take only half dose of Lantus the night before the colonoscopy -The day before the colonoscopy no glipizide, no Humalog but can take the Jardiance and metformin. -Skip the Mounjaro on 12/11/2024 and resume on 12/18/2024 -Call with blood sugar problems. -Labs in few weeks. Assessment & Plan (09/04/2024 9:28 AM EDT): Control is reasonable but not optimal based upon the patient's freestyle carlso 3 sensor download. No frequent or severe hypoglycemia. His glucose levels are running highest after meals. He questions being able to use a GLP-1 to help improve control. Reviewed the risks and benefit of weekly GLPS. He previously used trulicity but will try see if we can get mounjaro covered for him as it has better glucose response and better availability. Continue to work on eating healthy and being active. To call or message with any issues managing his glucose levels. He brought his son with him today to help with translation not knowing one would be here. Wrote a school note for his son. Assessment & Plan (07/14/2024 11:04 AM EDT): Suboptimal control by carlos 3 CGM download. Ongoing left foot infection, discharged from [facility] yesterday. [facility] visits every other day planned with 6 weeks of antibiotic to be completed. No frequent or severe hypoglycemia. -Obtain discharge summary from [facility]. -Increase Humalog to 24 units before breakfast, 34 units before lunch which is the biggest meal and continue 20 units before dinner. -Decrease Lantus to 64 to 66 units to prevent overnight lows. -Try some upper body exercises -Try to limit/water up sugary juices. -Reviewed symptoms, prevention and treatment of hypoglycemia. Call if blood sugar below 70 or over 250 repeatedly. -Labs soon. -Consider adding a GLP-1 agonist-will rediscuss at next visit. No history of pancreatitis or history/family history of medullary thyroid cancer. Assessment & Plan (05/18/2024 9:51 PM EDT): Suboptimal control by POC A1c 8.5% today and by carlos 3 CGM download. Average glucose 223 with postprandial spikes midday and late p.m. 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 We discussed that with ongoing infection it is expected that he needs higher dose of insulin. Also discussed the importance of proper hydration and following a carbohydrate controlled meal plan. Suggested to add 10 to 16 units of Humalog before breakfast, increase lunchtime Humalog to 24 units and increase dinner Humalog to 20 to 24 units. Also increase the bedtime Lantus to 66 units and continue to increase it by 2 to 4 units if fasting glucose over 142 3 days in a row and no overnight hypoglycemia. Call if blood sugar below 70 or over 250 repeatedly. Overdue for eye exam, patient to schedule and asked to send the report here. Assessment & Plan (03/02/2024 10:31 PM EDT): Suboptimal but improved control by carlos CGM download. Average glucose 166, GMI 7.3%. 55% in target, 34% high and 5% low. Most low blood sugars are happening overnight, some of them are related to taking too much Humalog with late dinner. Patient is currently using 10 units of Humalog before or 1 hour after breakfast, 20 units before lunch and between 15 to 20 units before dinner. He remains on 10 mg of Jardiance, 1000 mg metformin twice a day and 10 mg glipizide twice a day. We discussed symptoms, prevention and treatment of hypoglycemia as well as the importance of appropriate timing of Humalog 2 meals. Reviewed pros and cons of adding a GLP-1 receptor agonist and if we did we would stop the glipizide and likely could decrease the Humalog dose. Patient will think about it. He was interested in switching his carlos to carlos 3, will send Rx. Encouraged to continue to work on healthy meal plan and regular exercise. Due for eye exam, patient will schedule and requested to send report here. Will obtain done about 2 months ago at [facility]. Patient will have next labs by PCP in about a month. His left foot wound has healed and has follow-up appointment with Dr. Zuniga tomorrow. Encouraged to call if blood sugars below 70 or over 250 repeatedly. Assessment & Plan (09/22/2023 10:07 AM EDT): 48-year-old man with type 2 diabetes diagnosed few years ago. Unfortunately we have not received his old records from [facility]. Last seen about a year ago. He reports 2 hospitalizations this year at [facility] for right and left foot infection, last hospitalization for 10 days in 06/2023. He is followed by his PCP Dr. Juan Zuniga and waiting for follow-up appointment at [facility] wound clinic. He will be seen by karate teacher on 09/26/2023 because of DVT of leg and possibly arm, on Eliquis currently. He reports an A1c around 7.6% 3 months ago. He was not using the carlos CGM during the summer because of increased sweating made the sensor fall. He was rarely checking his blood sugars during the summer, the last few days his fasting glucose was between 88-155. Before dinner blood sugars 170-190. He has been taking 60 units of Lantus at 9 PM and 20 units of Humalog before lunch and 18 units before dinner. He does not take Humalog before breakfast. He is on 10 mg glipizide twice a day and 1000 mg metformin twice a day. About 3 months ago PCP added Jardiance 10 mg daily, taking it without side effects. He is working on cutting back on portions. His weight is stable. Denies any frequent or severe hypoglycemia. Suggested to restart using the carlos CGM, he is not sure which version he has supplies at home but he will use them up and will be following with us in 4 weeks to review the download to help with treatment adjustment. Continue to work on healthy meal plan and regular exercise as tolerated. Reviewed symptoms, prevention and treatment of hypoglycemia. Call if blood sugar below 70 or over 250. Follow-up with [facility] wound clinic regarding the left foot wound. Primary hypertension 06/06/2017 Assessment & Plan (01/07/2025 10:55 AM EST): Patient took his blood pressure medication about an hour ago, states it usually takes 2 hours before his pressure starts to come down. He will reach out to his PCP to discuss the time it takes to lower his blood pressure levels Encounters Date Type Department Care Team Description 09/15/2025 8:20 AM EDT Office Visit [facility] [address] [place] [address] Krystal Valentino MD Type 2 diabetes mellitus with hyperglycemia, with long-term current use of insulin from Last 3 Months Social History Tobacco Use Types Packs/Day Years Used Date Smoking Tobacco: Some Days Cigarettes Passive Smoke Exposure: Past Smokeless Tobacco: Never Tobacco Cessation:Ready to Q uit: Not Asked; Counseling Given: Not Answered Comments:QUIT 5 YEARS AGO Alcohol Use Standard Drinks/Week Comments Never 0 (1 standard drink = 0.6 oz pur e alcohol) Education Answer Date Recorded Are you interested in more education? Not on emperatriz e 08/02/2023 Are you concerned about learning? Not on file 08/02/2023 No 08/02/2023 No 08/02/2023 Digital Access Answer Date Recorded No 08/02/2023 No 08/02/2023 Reliable internet access at home? Not on file 08/02/2023 Device with a working camera? Not on file Sex and Gender Information Value Date Recorded Sex Assigned at Not on file Legal Sex Male 10:03 AM EDT Gender Identity Not on file Sexual Orientation Not on file Last Filed Vital Signs Vital Sign Reading Time Taken Comments Blood Pressure 134/86 09/15/2025 8:08 AM EDT Pulse 88 09/15/2025 8:08 AM EDT Temperature 36.2 C (97.2 F) 09/04/2024 8:32 AM EDT Respiratory Rate - - Oxygen Saturation 98% 09/15/2025 8:08 AM EDT Inhaled Oxygen Concentration - - Weight 119.5 kg (263 lb 6.4 oz) 09/15/2025 8:08 AM EDT Height 181 cm (5' 11.26 ) 09/15/2025 8:08 AM EDT Body Mass Index 36.47 09/15/2025 8:08 AM EDT Plan of Treatment Upcoming Encounters Date Type Department Care Team (Late st Contact Info) Description 12/26/2025 3:50 PM EST Office Visit [facility] [address] [place] [address] Estephania England PA-C [address] [place] [id number] 04/27/2026 8:20 AM EDT Office Visit [facility] [address] [place] [address] Krystal Valentino MD [address] [place] [id number] Health Maintenance Due Date Last Done Comments Adult Td,Tdap Booster 1973 DEPRESSION SCREENING 1985 SMOKING Hx and SMOKELESS TOBACCO SCREENING 1986 HEPATITIS C SCREENING 1991 HIV ONE-TIME SCREENING (18-65 YEARS) 1991 PNEUMOCOCCAL VACCINES (50+ years) (1 of 2 - PCV) 1992 COLOGUARD 2018 COLONOSCOPY 2018 COLORECTAL CANCER SCREENING 2018 FIT TEST 2018 FOBT 2018 SIGMOIDOSCOPY 2018 VIRTUAL COLONOSCOPY 2018 RSV VACCINE (1 - Risk 50-74 years 1-dose series) 2023 ZOSTER VACCINES (1 of 2) 2023 DIABETIC EYE EXAM 09/04/2023 HEMOGLOBIN A1C 12/02/2024 2024, 04/17/2024 INFLUENZA VACCINE (#1) 2025 COVID-19 VACCINE (1 - season) 2025 BLOOD PRESSURE 03/16/2026 09/15/2025 CREATININE LEVEL 09/15/2026 09/15/2025, , 12/11/2024, Additional history exists POTASSIUM LEVEL 09/15/2026 09/15/2025, 03/24/2025 HEPATITIS A VACCINES Aged Out No long er eligible based on patient's age to complete this topic HIB VACCINES Aged Out No longer eligi ble based on patient's age to complete this topic MENINGOCOCCAL VACCINES (ACWY) Aged Out No longer eligible based on patient's age to complete this topic MENINGOCOCCAL VACCINES (B) Aged Out N o longer eligible based on patient's age to complete this topic Medical Devices Not on file Procedures Procedure Name Priority Date/Time Associated Diagnosis Comments ALANINE AMINOTRANSFERASE (ALT) Routine 09/15/2025 8:20 AM EDT Type 2 diabetes mellitus with hyperglycemia, with long-term current use of insulin ASPARTATE AMINOTRANSFERASE (AST) Routine 09/15/2025 8:20 AM EDT Type 2 diabetes mellitus with hyperglycemia, with long-term current use of insulin BASIC METABOLIC PANEL (BMP) Routine 09/15/2025 8:20 AM EDT Type 2 diabetes mellitus with hyperglycemia, with long-term current use of insulin HEMOGLOBIN A1C Routine 09/15/2025 8:20 AM EDT Type 2 diabetes mellitus with hyperglycemia, with long-term current use of insulin OUTSIDE HEMOGLOBIN A1C Routine 2024 from Last 3 Months or Most Recently Relevant to Health Maintenance Results * Alanine aminotransferase (ALT) (09/15/2025 8:20 AM EDT) Blood Estephania SEGURA-C LAB BLOOD BKR ORDE RABLES Final Result Performing Organization Address [facility] Co de Phone Number [address] [address] * Aspartate aminotransferase (AST) (09/15/2025 8:20 AM EDT) Blood Estephania SEGURA-C LAB BLOOD BKR ORDE RABLES Final Result Performing Organization Address [facility] Co de Phone Number [address] [address] * Basic metabolic panel (09/15/2025 8:20 AM EDT) Blood Estephania SEGURA-C LAB BLOOD BKR ORDE RABLES Final Result Performing Organization Address [facility] Co de Phone Number [address] [address] * Hemoglobin A1c (09/15/2025 8:20 AM EDT) Blood Estephania SEGURA-C LAB BLOOD BKR ORDE RABLES Final Result Performing Organization Address [facility] Co de Phone Number [address] [address] * Outside HbA1c (2024) Hemoglobin A1c - External 8.5 % us Historical Provider LAB BLOOD ORDERABLES Lisa l Result from Last 3 Months or Most Recently Relevant to Health Maintenance [place] [address] [place] [address] [place] [address] [place] [address] POS UNITED POS UNITED POS UNITED POS Care Teams Film Critic Relationship Specialty Start Date End Date Amanda Kline MD [address] [place] [address] PCP - General Internal Medicine 11/26/24 Additional Source Comments The information contained in this document represents components of the legal health record. It is not the complete legal health record.[facility]
--- OUTSIDE RECORDS SUMMARY | 2025-09-30 08:58 | XMS_ITS ---
Author Name [facility] Organization Unknown History of Medication Use Medication Directions Dispensed Refills Start Date End Date Stat us amoxicillin-clavulan ate (AUGMENTIN) 875-125 MG per tablet Take 1 tablet by mouth 2 (two) times a day. 04/02/2024 active mupirocin (BACTROBAN) 2 % ointment Apply topically 3 (three) times a day. 04/02/2024 active Problems Problem Status Onset Date Problem Type Date of Resoluti on Source Open wound active EncounterDiagnosisAct [facility] Encounters Encounter Type Encounter Reason Primary Diagnosis Location Date Ambulatory [facility] 06/28/20 24 Ambulatory [facility] 06/14/20 24 Ambulatory [facility] 06/04/20 24 Ambulatory [facility] 05/23/20 24 Ambulatory [facility] 05/16/20 24 Ambulatory [facility] 05/10/20 24 Ambulatory [facility] 05/03/20 24 Ambulatory [facility] 04/25/2024 Ambulatory [facility] 04/25/20 24 Ambulatory [facility] 04/16/20 24 Ambulatory [facility] 04/09/20 24 Ambulatory [facility] 04/02/20 24 Ambulatory Other injury of unspecified body region, initial encounter Other injury of unspecified body region, initial encounter [facility] 04/02/2024 Care Team Organization Name Specialty Phone Email Start Date End Da te [facility] 10/07/2024 [facility] Juan Mcgovernrity Primary [facility] 10/05/2024 [facility] 04/03/2024 06/10/2025 [facility]
--- OUTSIDE RECORDS SUMMARY | 2025-09-30 08:58 | XMS_ITS | Clinical Summary ---
Author Organization [employer] [facility] Address [address] [place] [address] Care Team Providers Care [employer] Teacher Name Role Phone E[facility]rain Juan Nettie MONACO Primary Care Provider [phone] Medications Medication Sig Dispensed Refills Start Date End Date Status amoxicillin-clavulan ate (AUGMENTIN) 875-125 MG per tablet Take 1 tablet by mouth 2 (two) times a day. 20 tablet 0 04/02/2024 Active mupirocin (BACTROBAN) 2 % ointment Apply topically daily. 30 g 0 04/09/2024 Active mupirocin (BACTROBAN) 2 % ointment Apply topically 3 (three) times a day. 44 g 1 05/03/2024 Active Social History Tobacco Use Types Packs/Day Years Used Date Smoking Tobacco: Never Assessed Sex and Gender Information Value Date Recorded Sex Assigned at Male 04/02/2024 2:26 PM EDT Gender Identity Not on file Sexual Orientation Not on file Job Start Date Occupation Industry Not on file Not on file Not on file Plan of Treatment Health Maintenance Due Date Last Done Comments Hepatitis B Vaccines (1 of 3 - 3-dose series) 1973 Hepatitis C Screening 1973 COVID-19 Vaccine (#1) 03/02/1974 Depression Screening 1985 Preventative Health Evaluation 1991 DTap / Tdap / Td (1 - Tdap) 1992 Colon Cancer Screening (Colonoscopy) 2018 Shingrix-Zoster Vaccine (1 of 2) 2023 Influenza Vaccine (#1) 2025 Pneumococcal Vaccine Aged Out No long er eligible based on patient's age to complete this topic RSV Ped < 20 months Aged Out No longe r eligible based on patient's age to complete this topic Care Teams [employer] Teacher Relationship Specialty Start Date End Date Juan Zuniga DO [address] [place] [address] PCP - General [employer] 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
[2025-09-30 10:29] LABS: MANUAL DIFF FLAG NO
[2025-09-30 10:39] LABS: Appearance Urine Clear; Glucose Urine UA >=1000 mg/dL (Negative); PH 6.0 (5.0-9.0); Specific Gravity - Urine >= 1.030 (1.005-1.025); UMIC TRIGGER UA YES
[2025-09-30 10:40] LABS: Hematocrit 51.0 % (42.0-52.0); Hemoglobin 16.6 g/dl (14.0-18.0); Imm Gran Abs Auto 0.04 X10*3/uL (0.00-0.03); Imm Gran Pct Auto 0.3 % (0.0-0.4); Lymphocytes Absolute Auto 3.9 X10*3/uL (1.2-4.9); Mean Corpuscular HGB Conc 32.5 g/dl (31.0-36.0); Mean Corpuscular Hemoglobin 28.7 pg (27.0-33.0); Mean Corpuscular Volume 88.1 fL (80.0-98.0); NRBC Abs Auto 0.000 X10*3/uL (0.0-0.012); NRBC Pct Auto 0.0 /100WBC (0.0-0.2); Platelet Count 300 X10*3/uL (160-400); Red Blood Count 5.79 X10*6/uL (4.60-5.80); White Blood Count 12.7 X10*3/uL (4.8-10.8)
[2025-09-30 10:57] LABS: Microalbum/Creatinine Ratio Ur 33.2 ug/mg cr (<30)
[2025-09-30 11:02] LABS: Alanine Aminotransferase 70 U/L (0-40); Albumin Level 4.6 g/dL (3.5-5.0); Alkaline Phosphatase 70 U/L (39-117); Anion Gap 14 (12-20); Aspartate Amino Transferase 38 U/L (5-37); Blood Urea Nitrogen 28 mg/dL (9-16); Calcium 9.6 mg/dL (8.4-10.2); Carbon Dioxide 28 mmol/L (22-29); Chloride 104 mmol/L (96-108); Cholesterol 198 mg/dL (<200); Estimated Glomerular Filt Rate 58; HDL Cholesterol 34 mg/dL (>40); Potassium 4.2 mmol/L (3.3-5.1); Sodium 142 mmol/L (135-145); Total Protein 7.9 g/dL (6.5-8.0); Triglycerides 282 mg/dL (<150)
[2025-09-30 11:39] LABS: PSA,Total (Free>4and<10) 0.47 ng/mL (0.00-4.00)
== END 2025-09-30 08:35 | disposition home or self-care (01) ==
LOC: HO.HMGCX 08:34
PROVIDERS: PCP Internal Medicine; Visit Provider Internal Medicine
DX: E11.9 Type 2 diabetes mellitus without complications (principal); L02.512 Cutaneous abscess of left hand; Z12.5 Encounter for screening for malignant neoplasm of prostate
CPT/HCPCS: 36415; 73140; 80053; 80061; 81001; 82043; 82570; 84153; 85025

== ENCOUNTER → 2025-09-30 08:52 | Outpatient (BNV) | payer OTHER, SELFPAY | PROVIDERS: PCP Internal Medicine; Visit Provider Radiology Diagnostic Radiology | DX: L02.512 Cutaneous abscess of left hand (principal) | CPT/HCPCS: 73140 ==